=== PATIENT | female | born 1990 | race Caucasian/White ===

== ENCOUNTER 2016-12-11 02:05 | Inpatient (IN) | payer MEDICAID ==
[2016-12-11 02:54] LABS: APPEARANCE,URINE CLOUDY; BILIRUBIN,URINE SMALL (NEGATIVE); GLUCOSE, URINE NEGATIVE (NEGATIVE); KETONES,URINE TRACE mg/dL (NEGATIVE); LEUKOCYTE ESTERASE,URINE SMALL (NEGATIVE); NITRITE,URINE NEGATIVE (NEGATIVE); PROTEIN,URINE 100 mg/dL (NEGATIVE); URINE SPECIFIC GRAVITY 1.047
[2016-12-11 03:02] LABS: AMNISURE (ROM) POSITIVE (NEGATIVE)
[2016-12-11 03:29] LABS: URINE BARBITURATES SCREEN NEGATIVE; URINE METHADONE SCREEN NEGATIVE; URINE OPIATES LOW NEGATIVE; URINE PHENCYCLIDINE SCREEN NEGATIVE
[2016-12-11] MEDS: RINGERS SOLUTION,LACTATED 1,000 ML IV PRN ×5 (03:42→18:11)
[2016-12-11 03:46] LABS: HEMATOCRIT 32.9 % (36.0-47.0); HEMOGLOBIN 10.5 g/dL (12.0-15.5); HGB HCT DIFFERENCE -1.4; MEAN CORPUSCULAR HEMOGLOBIN 26.4 pg (27.0-33.4); MEAN CORPUSCULAR VOLUME 83 fl (80-97); RED BLOOD COUNT 3.99 10^6/uL (3.72-5.28); RED CELL DISTRIBUTION WIDTH 15.1 % (11.5-14.0); WHITE BLOOD COUNT 21.1 10^3/uL (4.0-10.5)
[2016-12-11 04:17] LABS: BAND NEUTROPHILS % (MANUAL) 5 % (3-5); BASOPHILS % (MANUAL) 0 % (0-2); EOSINOPHILS % (MANUAL) 2 % (0-6); LYMPHOCYTES % (MANUAL) 7 % (13-45); TOTAL CELLS COUNTED 100
[2016-12-11 04:18] LABS: TOXIC GRANULATION SLIGHT
[2016-12-11 04:19] LABS: ANISOCYTOSIS SLIGHT; HYPOCHROMASIA SLIGHT; POLYCHROMASIA SLIGHT
[2016-12-11] MEDS ORDERED: FENTANYL/BUPIVACAINE/NS/PF 200 MCG/100 ML RTUINJ EPI ONE ×2 (04:39→13:11)
[2016-12-11] MEDS ORDERED: BUPIVACAINE HCL 0.25 % INJ/PF (2.5 MG/1 ML) 30 ML VIAL ONE (04:39)
[2016-12-11] MEDS ORDERED: EPHEDRINE SULFATE INJ 50 MG/1 ML AMPULE ONE (04:39)
[2016-12-11] MEDS ORDERED: FENTANYL/BUPIVACAINE/NS/PF 100 ML EPI PRN (05:48)
[2016-12-11] MEDS ORDERED: EPHEDRINE SULFATE INJ 50 MG/1 ML AMPULE IV PRN (05:48)
[2016-12-11] MEDS ORDERED: BUPIVACAINE HCL 0.25 % INJ/PF (2.5 MG/1 ML) 30 ML VIAL INFIL ONE (05:48)
[2016-12-11] MEDS ORDERED: BENZOIN/ALOE VERA/STORAX/TOLU TINCTURE 60 ML TP PRN (05:48)
[2016-12-11] MEDS ORDERED: RINGERS SOLUTION,LACTATED 1,000 ML IV PRN (05:49)
[2016-12-11] MEDS ORDERED: RINGERS SOLUTION,LACTATED 300 ML IV ONE (05:49)
[2016-12-11] MEDS ORDERED: OXYTOCIN/NORMAL SALINE 20 UNIT/1,000 ML RTUINJ IV PRN (05:49)
[2016-12-11] MEDS ORDERED: OXYTOCIN/NORMAL SALINE 20 UNIT/1,000 ML RTUINJ ONE ×2 (05:50→15:47)
--- NOTE | 2016-12-11 08:01 | L&D Flow Sheet ---
LD Flowsheet Datetime Report Generated by CPN: 12/11/2016 08:00 Datetime: 12/11/2016 07:49 NBP Sys/Renita/Mean (mmHg): 106 (QS system process) : 66 (QS system process) : 82 (QS system process) Pulse: 80 (QS system process) Respirations: 14 (Julieta Live RN) Temperature (F): 98.4 (Julieta Live RN) Temperature (C): 36.9 (QS system process) Temperature Route: Oral (Julieta Live RN) Pain Pain Scale: 0 (Julieta Marhefka, RN) Pain Presence: None/Denies (Julieta Marhefka, RN) Pain Type: N/A (Julieta Marhefka, RN) Pain Goal: 0 (Julieta Marhefka, RN) Pain Relief Measures: Comfort Measures (Julieta Marhefka, RN) Maternal Assessment Level of Consciousness: Fully Conscious (Julieta Marhefka, RN) DTR's/Clonus: DTRs 1+; No Clonus (Julieta Marhefka, RN) Headache: Denies (Julieta Marhefka, RN) Breath Sounds, Left: Clear and Equal (Julieta Marhefka, RN) Breath Sounds, Right: Clear and Equal (Julieta Marhefka, RN) Nausea/Vomiting: Denies (Julieta Marhefka, RN) RUQ Epigastric Pain: Denies (Julieta Marhefka, RN) LaborFlag: Antepartum (QS system process) Datetime: 12/11/2016 07:33 NBP Sys/Renita/Mean (mmHg): 88 (QS system process) : 52 (QS system process) : 64 (QS system process) Pulse: 68 (QS system process) LaborFlag: Antepartum (QS system process) Datetime: 12/11/2016 07:19 NBP Sys/Renita/Mean (mmHg): 83 (QS system process) : 48 (QS system process) : 60 (QS system process) Pulse: 68 (QS system process) LaborFlag: Antepartum (QS system process) Datetime: 12/11/2016 07:07 Communication Communication: Report Given to @ R. Deonnahefka RN (Crystal Aditi, RN) Datetime: 12/11/2016 07:03 NBP Sys/Renita/Mean (mmHg): 81 (QS system process) : 48 (QS system process) : 60 (QS system process) Pulse: 72 (QS system process) LaborFlag: Antepartum (QS system process) Datetime: 12/11/2016 07:00 Uterine Activity Monitor Mode: External; Palpation (Crystal Harper, RN) Frequency (min): 2.5-7 (Crystal Harper, RN) Quality: Moderate to Strong (Crystal Harper, RN) Duration (sec): 60-90 (Crystal Harper, RN) Duration Criteria: Less than Two 120 Second Contractions (Crystal Aditi, RN) Resting Tone (Palpate): Relaxed (Crystal Harper, RN) Assessment A Monitor Mode: External US (Crystal Harper, RN) FHR Baseline Rate : 130 (Crystal Harper, RN) Variability: Moderate 6-25 bpm (Crystal Aditi, RN) Accelerations: None (Crystal Harper, RN) Decelerations: None (Crystal Harper, RN) Medications Pitocin (milliunit): Pitocin Remains (milliunits) @ 4 (Crystal Harper, RN) Datetime: 12/11/2016 06:48 NBP Sys/Renita/Mean (mmHg): 85 (QS system process) : 49 (QS system process) : 61 (QS system process) Pulse: 67 (QS system process) LaborFlag: Antepartum (QS system process) Datetime: 12/11/2016 06:45 Uterine Activity Monitor Mode: External; Palpation (Crystal Aditi, RN) Frequency (min): 4-7 (Crystal Harper, RN) Quality: Moderate to Strong (Crystal Harper, RN) Duration (sec): 80-100 (Crystal Aditi, RN) Duration Criteria: Less than Two 120 Second Contractions (Crystal Harper, RN) Resting Tone (Palpate): Relaxed (Crystal Harper, RN) Assessment A Monitor Mode: External US (Crystal Aditi, RN) FHR Baseline Rate : 135 (Crystal Aditi, RN) Variability: Moderate 6-25 bpm (Crystal Harper, RN) Accelerations: 15X15 (Crystal Harper, RN) Decelerations: None (Crystal Aditi, RN) Pain Presence: None/Denies (Crystal Harper, RN) Pain Type: N/A (Crystal Aditi, RN) Pain Relief Measures: Epidural Given (Crystal Aditi, RN) Medications Pitocin (milliunit): Pitocin Increased to (milliunits) @ 4 (Crystal Harper, RN) Patient Position/Activity: Left Lateral (Crystal Aditi, RN) LaborFlag: Antepartum (QS system process) Datetime: 12/11/2016 06:35 NBP Sys/Renita/Mean (mmHg): 83 (QS system process) : 52 (QS system process) : 62 (QS system process) Pulse: 74 (QS system process) LaborFlag: Antepartum (QS system process) Datetime: 12/11/2016 06:34 NBP Sys/Renita/Mean (mmHg): 83 (QS system process) : 46 (QS system process) : 60 (QS system process) Pulse: 68 (QS system process) LaborFlag: Antepartum (QS system process) Datetime: 12/11/2016 06:33 NBP Sys/Renita/Mean (mmHg): 89 (QS system process) : 53 (QS system process) : 67 (QS system process) Pulse: 65 (QS system process) LaborFlag: Antepartum (QS system process) Datetime: 12/11/2016 06:30 Uterine Activity Monitor Mode: External; Palpation (Crystal Harper, RN) Frequency (min): 9 (Crystal Harper, RN) Quality: Moderate to Strong (Crystal Harper, RN) Duration (sec): 120 (Crystal Harper, RN) Duration Criteria: Less than Two 120 Second Contractions (Crystal Harper, RN) Resting Tone (Palpate): Relaxed (Crystal Harper, RN) Assessment A Monitor Mode: External US (Crystal Harper, RN) FHR Baseline Rate : 115 (Crystal Harper, RN) Variability: Moderate 6-25 bpm (Crystal Aditi, RN) Accelerations: 15X15 (Crystal Aditi, RN) Decelerations: None (Crystal Aditi, RN) Medications Pitocin (milliunit): Pitocin Remains (milliunits) @ 2 (Crystal Aditi, RN) Patient Position/Activity: Left Lateral; Semi-Fowlers (Crystal Harper, RN) Datetime: 12/11/2016 06:18 NBP Sys/Renita/Mean (mmHg): 85 (QS system process) : 47 (QS system process) : 63 (QS system process) Pulse: 69 (QS system process) LaborFlag: Antepartum (QS system process) Datetime: 12/11/2016 06:15 Uterine Activity Monitor Mode: External (Crystal Aditi, RN) Frequency (min): 9.5 (Crystal Aditi, RN) Quality: Moderate to Strong (Crystal Aditi, RN) Duration (sec): 80 (Crystal Harper, RN) Duration Criteria: Less than Two 120 Second Contractions (Crystal Harper, RN) Resting Tone (Palpate): Relaxed (Crystal Aditi, RN) Assessment A Monitor Mode: External US (Crystal Aditi, RN) FHR Baseline Rate : 102 (Crystal Harper, RN) Variability: Moderate 6-25 bpm (Crystal Aditi, RN) Accelerations: 15X15 (Crystal Aditi, RN) Decelerations: None (Crystal Aditi, RN) Medications Pitocin (milliunit): Pitocin Started (milliunits) @ 2 (Crystal Aditi, RN) Patient Position/Activity: Left Lateral (Crystal Harper, RN) Datetime: 12/11/2016 06:11 Vaginal Exam Dilatation (cm): 4.0 (Crystal Aditi, RN) Effacement (%): 75 (Crystal Harper, RN) Station: -1 (Crystal Aditi, RN) Exam by: Purnima Pennington RN (Crystal Aditi, RN) Vaginal Bleeding: None (Crystal Harper, RN) Cervix, Consistency: Soft (Crystal Aditi, RN) Cervix, Position: Posterior (Crystal Aditi, RN) Datetime: 12/11/2016 06:06 NBP Sys/Renita/Mean (mmHg): 88 (QS system process) : 52 (QS system process) : 66 (QS system process) Pulse: 71 (QS system process) LaborFlag: Antepartum (QS system process) Datetime: 12/11/2016 06:05 NBP Sys/Renita/Mean (mmHg): 85 (QS system process) : 47 (QS system process) : 60 (QS system process) Pulse: 73 (QS system process) LaborFlag: Antepartum (QS system process) Datetime: 12/11/2016 06:04 NBP Sys/Renita/Mean (mmHg): 88 (QS system process) : 50 (QS system process) : 61 (QS system process) Pulse: 70 (QS system process) LaborFlag: Antepartum (QS system process) Datetime: 12/11/2016 06:03 Vital Signs Stage of : Antepartum (Crystal Aditi, RN) NBP Sys/Renita/Mean (mmHg): 89 (Annotations: Reported BP to Dr. Higgins, will continue to monitor.) (Crystal Harper, RN) : 50 (QS system process) : 63 (QS system process) Pulse: 73 (QS system process) LaborFlag: Antepartum (QS system process) Datetime: 12/11/2016 06:00 Vital Signs Stage of : Antepartum (Crystal Harper, RN) Uterine Activity Monitor Mode: External (Crystal Aditi, RN) Frequency (min): 9.5 (Crystal Harper, RN) Quality: Moderate to Strong (Tami Pennington RN) Duration (sec): 80 (Tami Pennington RN) Duration Criteria: Less than Two 120 Second Contractions (Tami Pennington RN) Resting Tone (Palpate): Relaxed (Tami Pennington, RN) Assessment A Monitor Mode: External US (Tami Pennington RN) FHR Baseline Rate : 120 (Tami Pennington RN) Variability: Moderate 6-25 bpm (Tami Pennington RN) Accelerations: None (Tami Pennington RN) Decelerations: None (Tami Pennington RN) Patient Position/Activity: Left Lateral (Tami Pennington RN) Provider Reviewed Strip: Yes (Tami Pennington RN) Strip Reviewed by: Purnima Pennington RN (Tami Pennington RN) Communication Communication: Provider Orders Received (Tami Pennington RN) Provider Notified (Name): Ronaldo (Tami Pennington RN) Notification Reason: Status Update; Status; Labor Status; Membrane Status; Uterine Activity; Maternal Vital Sign Change (Crystal Aditi, RN) Communication Comments: Orders to start Pitocin IV (Crystal Aditi, RN) Datetime: 12/11/2016 05:48 NBP Sys/Renita/Mean (mmHg): 100 (QS system process) : 55 (QS system process) : 72 (QS system process) Pulse: 82 (QS system process) LaborFlag: Antepartum (QS system process) Datetime: 12/11/2016 05:45 Uterine Activity Monitor Mode: External (Crystal Aditi, RN) Frequency (min): 9.5 (Crystal Aditi, RN) Quality: Moderate to Strong (Crystal Aditi, RN) Duration Criteria: Less than Two 120 Second Contractions (Crystal Harper, RN) Resting Tone (Palpate): Relaxed (Crystal Harper, RN) Assessment A Monitor Mode: External US (Crystal Harper, RN) FHR Baseline Rate : 110 (Crystal Aditi, RN) Variability: Moderate 6-25 bpm (Crystal Harper, RN) Accelerations: 15X15 (Crystal Harper, RN) Decelerations: None (Crystal Harper, RN) Patient Position/Activity: Right Lateral (Crystal Aditi, RN) Datetime: 12/11/2016 05:33 NBP Sys/Renita/Mean (mmHg): 98 (QS system process) : 55 (QS system process) : 69 (QS system process) Pulse: 82 (QS system process) LaborFlag: Antepartum (QS system process) Datetime: 12/11/2016 05:30 Uterine Activity Monitor Mode: External; Palpation (Crystal Aditi, RN) Frequency (min): 4-6.5 (Crystal Harper, RN) Quality: Moderate to Strong (Crystal Aditi, RN) Duration Criteria: Less than Two 120 Second Contractions (Crystal Aditi, RN) Resting Tone (Palpate): Relaxed (Crystal Harper, RN) Assessment A Monitor Mode: External US (Crystal Aditi, RN) FHR Baseline Rate : 115 (Crystal Harper, RN) Variability: Moderate 6-25 bpm (Crystal Harper, RN) Accelerations: 15X15 (Crystal Aditi, RN) Decelerations: None (Crystal Harper, RN) Patient Position/Activity: Right Lateral (Crystal Aditi, RN) Datetime: 12/11/2016 05:16 Vaginal Exam Dilatation (cm): 3.5 (Crystal Aditi, RN) Effacement (%): 75 (Crystal Harper, RN) Station: -1 (Crystal Aditi, RN) Exam by: CVaishali Harper, RN (Crystal Aditi, RN) Datetime: 12/11/2016 05:15 Uterine Activity Monitor Mode: External (Crystal Aditi, RN) Frequency (min): UTD (Crystal Harper, RN) Quality: Moderate (Crystal Harper, RN) Duration Criteria: Less than Two 120 Second Contractions (Crystal Aditi, RN) Resting Tone (Palpate): Relaxed (Crystal Harper, RN) Assessment A Monitor Mode: External US (Crystal Aditi, RN) FHR Baseline Rate : 125 (Crystal Aditi, RN) Variability: Moderate 6-25 bpm (Crystal Harper, RN) Accelerations: None (Crystal Harper, RN) Decelerations: None (Crystal Aditi, RN) I/O Interventions: Maldonado Cath Inserted (Crystal Harper, RN) Datetime: 12/11/2016 05:14 NBP Sys/Renita/Mean (mmHg): 107 (QS system process) : 65 (QS system process) : 80 (QS system process) Pulse: 95 (QS system process) LaborFlag: Antepartum (QS system process) Datetime: 12/11/2016 05:13 NBP Sys/Renita/Mean (mmHg): 115 (QS system process) : 67 (QS system process) : 84 (QS system process) Pulse: 94 (QS system process) LaborFlag: Antepartum (QS system process) Datetime: 12/11/2016 05:12 NBP Sys/Renita/Mean (mmHg): 106 (QS system process) : 56 (QS system process) : 75 (QS system process) Pulse: 88 (QS system process) LaborFlag: Antepartum (QS system process) Datetime: 12/11/2016 05:11 NBP Sys/Renita/Mean (mmHg): 112 (QS system process) : 59 (QS system process) : 78 (QS system process) Pulse: 82 (QS system process) LaborFlag: Antepartum (QS system process) Datetime: 12/11/2016 05:10 NBP Sys/Renita/Mean (mmHg): 104 (QS system process) : 60 (QS system process) : 76 (QS system process) Pulse: 79 (QS system process) LaborFlag: Antepartum (QS system process) Datetime: 12/11/2016 05:09 NBP Sys/Renita/Mean (mmHg): 110 (QS system process) : 62 (QS system process) : 79 (QS system process) Pulse: 86 (QS system process) Epidural Procedure Other: Pump Started (Crystal Harper, RN) LaborFlag: Antepartum (QS system process) Datetime: 12/11/2016 05:07 NBP Sys/Renita/Mean (mmHg): 109 (QS system process) : 56 (QS system process) : 76 (QS system process) Pulse: 90 (QS system process) LaborFlag: Antepartum (QS system process) Datetime: 12/11/2016 05:06 NBP Sys/Renita/Mean (mmHg): 115 (QS system process) : 56 (QS system process) : 81 (QS system process) Pulse: 103 (QS system process) LaborFlag: Antepartum (QS system process) Datetime: 12/11/2016 05:04 NBP Sys/Renita/Mean (mmHg): 123 (QS system process) : 90 (QS system process) : 104 (QS system process) Pulse: 90 (QS system process) LaborFlag: Antepartum (QS system process) Datetime: 12/11/2016 05:03 Pulse: 87 (QS system process) SpO2 (%): 88 (QS system process) LaborFlag: Antepartum (QS system process) Datetime: 12/11/2016 05:01 Epidural Procedure: Test Dose (Crystal Aditi, RN) Epidural Procedure: Cath Placed (Crystal Harper, RN) Datetime: 12/11/2016 05:00 Uterine Activity Monitor Mode: External (Crystal Aditi, RN) Frequency (min): UTD (Crystal Harper, RN) Quality: Moderate to Strong (Crystal Harper, RN) Duration Criteria: Less than Two 120 Second Contractions (Crystal Aditi, RN) Resting Tone (Palpate): Relaxed (Crystal Aditi, RN) Assessment A Monitor Mode: External US (Crystal Aditi, RN) FHR Baseline Rate : 130 (Crystal Aditi, RN) Variability: Moderate 6-25 bpm (Crystal Aditi, RN) Accelerations: None (Crystal Harper, RN) Decelerations: None (Crystal Harper, RN) Datetime: 12/11/2016 04:58 Pulse: 95 (QS system process) SpO2 (%): 100 (QS system process) LaborFlag: Antepartum (QS system process) Datetime: 12/11/2016 04:53 Pulse: 90 (QS system process) SpO2 (%): 100 (QS system process) Procedure TIME OUT Procedure Verify: Accurate Procedure Consent Form; Agreement on Procedure to be Done; Correct Patient Position; Addressed Need to Administer Antibiotics or Fluids for Irrigation; Safety Precautions Based on Patient History or Medication Use (Crystal Aditi, RN) Anesthesia Anesthesia Plans: Epidural (Crystal Harper, RN) Epidural Positioning: Sitting (Crystal Aditi, RN) LaborFlag: Antepartum (QS system process) Datetime: 12/11/2016 04:48 Pulse: 102 (QS system process) SpO2 (%): 100 (QS system process) LaborFlag: Antepartum (QS system process) Datetime: 12/11/2016 04:47 Procedure TIME OUT Procedure Verify: Correct Patient Position (Crystal Harper, RN) Anesthesia Anesthesia Plans: Epidural (Crystal Harper, RN) Epidural Positioning: Sitting (Crystal Harper, RN) Datetime: 12/11/2016 04:31 NBP Sys/Renita/Mean (mmHg): 111 (QS system process) : 71 (QS system process) : 85 (QS system process) Pulse: 100 (QS system process) LaborFlag: Antepartum (QS system process) Datetime: 12/11/2016 04:30 Uterine Activity Monitor Mode: External (Crystal Aditi, RN) Frequency (min): 4-5.5 (Crystal Harper, RN) Quality: Moderate (Crystal Harper, RN) Duration (sec): 60-80 (Crystal Aditi, RN) Duration Criteria: Less than Two 120 Second Contractions (Crystal Aditi, RN) Resting Tone (Palpate): Relaxed (Crystal Aditi, RN) Assessment A Monitor Mode: External US (Crystal Harper, RN) FHR Baseline Rate : 120 (Crystal Aditi, RN) Variability: Moderate 6-25 bpm (Crystal Harper, RN) Decelerations: None (Crystal Aditi, RN) Patient Position/Activity: Right Lateral (Crystal Aditi, RN) Datetime: 12/11/2016 04:28 I/O Interventions: Up to BR (Crystal Aditi, RN) Datetime: 12/11/2016 04:05 Patient Care IV/Blood Work: IV Started (Crystal Aditi, RN) Patient Care Comments: 18 G L FA (Crystal Aditi, RN) Datetime: 12/11/2016 04:00 Uterine Activity Monitor Mode: External (Crystal Harper, RN) Frequency (min): 4-6 (Crystal Harper, RN) Quality: Moderate (Crystal Harper, RN) Duration (sec): 60-70 (Crystal Aditi, RN) Duration Criteria: Less than Two 120 Second Contractions (Crystal Aditi, RN) Resting Tone (Palpate): Relaxed (Crystal Harper, RN) Assessment A Monitor Mode: External US (Crystal Harper, RN) FHR Baseline Rate : 120 (Crystal Aditi, RN) Variability: Moderate 6-25 bpm (Crystal Harper, RN) Accelerations: 15X15 (Crystal Aditi, RN) Decelerations: None (Crystal Harper, RN) Patient Position/Activity: Right Lateral (Crystal Aditi, RN) Datetime: 12/11/2016 03:38 Temperature (F): 98.1 (Crystal Aditi, RN) Temperature (C): 36.7 (QS system process) LaborFlag: Antepartum (QS system process) Datetime: 12/11/2016 03:31 Patient Care IV/Blood Work: Labs Drawn (Crystal Aditi, RN) Datetime: 12/11/2016 03:30 Uterine Activity Monitor Mode: External; Palpation (Crystal Aditi, RN) Frequency (min): 3.5-5.5 (Crystal Harper, RN) Quality: Moderate (Crystal Aditi, RN) Duration (sec): 60-80 (Crystal Harper, RN) Duration Criteria: Less than Two 120 Second Contractions (Crystal Harper, RN) Resting Tone (Palpate): Relaxed (Crystal Harper, RN) Assessment A Monitor Mode: External US (Crystal Harper, RN) FHR Baseline Rate : 120 (Crystal Aditi, RN) Variability: Moderate 6-25 bpm (Crystal Harper, RN) Accelerations: None (Crystal Harper, RN) Decelerations: None (Crystal Aditi, RN) Patient Position/Activity: Right Lateral; Semi-Fowlers (Crystal Aditi, RN) Datetime: 12/11/2016 03:17 Patient Care IV/Blood Work: IV Started; IV Bolus Started (Crystal Aditi, RN) Patient Care Comments: 18 G R AC (Crystal Harper, RN) Datetime: 12/11/2016 03:15 Frequency (min): UTD (Crystal Harper, RN) Quality: Moderate (Crystal Harper, RN) Resting Tone (Palpate): Relaxed (Crystal Harper, RN) Assessment A Monitor Mode: External US (Crystal Aditi, RN) FHR Baseline Rate : 120 (Crystal Aditi, RN) Variability: Moderate 6-25 bpm (Crystal Harper, RN) Accelerations: None (Crystal Aditi, RN) Decelerations: None (Crystal Aditi, RN) Patient Position/Activity: Right Lateral (Crystal Aditi, RN) Datetime: 12/11/2016 02:42 Vaginal Exam Dilatation (cm): 3.0 (Crystal Aditi, RN) Effacement (%): 75 (Crystal Harper, RN) Station: -1 (Crystal Harper, RN) Exam by: Purnima Pennington RN (Crystal Harper, RN) Vaginal Bleeding: None (Crystal Aditi, RN) Cervix, Consistency: Soft (Crystal Harper, RN) Cervix, Position: Posterior (Crystal Aditi, RN) Datetime: 12/11/2016 02:40 Uterine Activity Monitor Mode: External; Palpation (Crystal Harper, RN) Frequency (min): 4.5-7 (Crystal Harper, RN) Quality: Moderate (Crystal Aditi, RN) Duration (sec): 50-90 (Crystal Aditi, RN) Duration Criteria: Less than Two 120 Second Contractions (Crystal Aditi, RN) Resting Tone (Palpate): Relaxed (Crystal Aditi, RN) Assessment A Monitor Mode: External US (Crystal Harper, RN) FHR Baseline Rate : 120 (Crystal Aditi, RN) Variability: Moderate 6-25 bpm (Crystal Aditi, RN) Accelerations: 15X15 (Crystal Aditi, RN) Decelerations: None (Crystal Aditi, RN) Patient Position/Activity: Right Lateral; Semi-Fowlers (Crystal Aditi, RN) I/O Interventions: Clear Liquids Given (Crystal Harper, RN) Datetime: 12/11/2016 02:30 Vital Signs Stage of : Antepartum (Crystal Harper, RN) Datetime: 12/11/2016 02:26 NBP Sys/Renita/Mean (mmHg): 115 (QS system process) : 72 (QS system process) : 87 (QS system process) Pulse: 92 (QS system process) Datetime: 12/11/2016 02:18 Frequency (min): About every 3 minutes (Crystal Harper, RN) Pain Pain Scale: 3 (Crystal Aditi, RN) Pain Presence: Intermittent (Crystal Harper, RN) Pain Type: Contraction (Crystal Aditi, RN) Pain Location: Abdomen (Crystal Harper, RN) Pain Goal: 2 (Crystal Harper, RN) Pain Relief Measures: Comfort Measures (Crystal Harper, RN) Pain Coping: Talking Through Contractions (Crystal Harper, RN) Vaginal Bleeding: None (Crystal Aditi, RN) Maternal Assessment Level of Consciousness: Fully Conscious (Tami Pennington RN) DTR's/Clonus: DTRs 2+; No Clonus (Tami Pennington RN) Headache: Denies (Tami Pennington RN) Breath Sounds, Left: Clear and Equal (Tami Pennington RN) Breath Sounds, Right: Clear and Equal (Tami Pennington RN) Nausea/Vomiting: Denies (Tami Pennington RN) RUQ Epigastric Pain: Denies (Tami Pennington, RN) Teaching Instructional Method: Verbal; Patient Instructed; Family/Support Person Instructed; Verbalized Understanding (Tami Pennington RN) Plan of Care: Plan of Care Discussed (Tami Pennington RN) Unit Routine: Franklin to Room; Call Morgan; Bed (Tami Pennington RN)
--- NOTE | 2016-12-11 10:00 | L&D Flow Sheet ---
LD Flowsheet Datetime Report Generated by CPN: 12/11/2016 10:00 Datetime: 12/11/2016 09:49 NBP Sys/Renita/Mean (mmHg): 108 (QS system process) : 66 (QS system process) : 81 (QS system process) Pulse: 86 (QS system process) LaborFlag: Antepartum (QS system process) Datetime: 12/11/2016 09:45 Monitor Mode: External (Julieta Maria T, RN) Frequency (min): 3-4 (Julieta Marhefka, RN) Quality: Mild/Moderate (Julieta Live, RN) Duration (sec): 70-100 (Julieta Live RN) Resting Tone (Palpate): Relaxed (Julieta Live RN) Pitocin (milliunit): Pitocin Remains (milliunits) @ (Annotations: 14) (Julieta Live, LYLE) Datetime: 12/11/2016 09:33 NBP Sys/Renita/Mean (mmHg): 107 (QS system process) : 63 (QS system process) : 77 (QS system process) Pulse: 84 (QS system process) LaborFlag: Antepartum (QS system process) Datetime: 12/11/2016 09:30 Monitor Mode: External (Julieta Live RN) Frequency (min): 1-5 (Julieta Live RN) Quality: Mild/Moderate (Julieta Live, RN) Duration (sec): 70-100 (Julieta Live RN) Resting Tone (Palpate): Relaxed (Julieta Live RN) Pitocin (milliunit): Pitocin Remains (milliunits) @ (Annotations: 14) (Julieta Live RN) Datetime: 12/11/2016 09:18 NBP Sys/Renita/Mean (mmHg): 98 (QS system process) : 62 (QS system process) : 75 (QS system process) Pulse: 86 (QS system process) Respirations: 16 (Julieta Live RN) LaborFlag: Antepartum (QS system process) Datetime: 12/11/2016 09:15 Monitor Mode: External (Julieta Live RN) Frequency (min): 2-3 (Julieta Live RN) Quality: Mild/Moderate (Julieta Live RN) Duration (sec): 70-90 (Julieta Live RN) Resting Tone (Palpate): Relaxed (Julieta Live RN) Monitor Mode: External US (Julieta Live RN) FHR Baseline Rate : 125 (Julieta Live RN) FHR Baseline Changes: No Baseline Change (Julieta Live RN) Variability: Moderate 6-25 bpm (Julieta Live RN) Accelerations: 15X15 (Julieta Live RN) Decelerations: None (Julieta Live RN) Pitocin (milliunit): Pitocin Increased to (milliunits) @ (Annotations: 14) (Julieta Live RN) Datetime: 12/11/2016 09:08 Patient Position/Activity: High Fowlers (Julieta Live, LYLE) Datetime: 12/11/2016 09:06 Dilatation (cm): 4.0 (Julieta Live RN) Effacement (%): 70 (Julieta Live RN) Station: -2 (Julieta Live RN) Exam by: Kerry Live RN (Julieta Live RN) Vaginal Bleeding: None (Julieta Live RN) Cervix, Consistency: Moderate (Julieta Marhefka, RN) Cervix, Position: Midposition (Julietakayy Foxka, RN) Datetime: 12/11/2016 09:03 NBP Sys/Renita/Mean (mmHg): 96 (QS system process) : 62 (QS system process) : 72 (QS system process) Pulse: 76 (QS system process) LaborFlag: Antepartum (QS system process) Datetime: 12/11/2016 09:00 Monitor Mode: External (Julieta Live RN) Frequency (min): 2-4 (Julieta Live, RN) Quality: Mild/Moderate (Julieta Foxka, RN) Duration (sec): 70-90 (Julieta Live, RN) Resting Tone (Palpate): Relaxed (Julieta Live RN) Monitor Mode: External US (Julieta Live, RN) FHR Baseline Rate : 125 (Julieta Foxka, RN) FHR Baseline Changes: No Baseline Change (Julieta Live RN) Variability: Moderate 6-25 bpm (Julieta Marhefka, RN) Accelerations: 15X15 (Julieta Live, RN) Decelerations: None (Julieta Live, RN) Pitocin (milliunit): Pitocin Increased to (milliunits) @ (Annotations: 12) (Julieta Live, RN) Datetime: 12/11/2016 08:48 NBP Sys/Renita/Mean (mmHg): 100 (QS system process) : 63 (QS system process) : 75 (QS system process) Pulse: 81 (QS system process) LaborFlag: Antepartum (QS system process) Datetime: 12/11/2016 08:45 Monitor Mode: External (Julieta Live RN) Frequency (min): 1-3 (Julieta Live RN) Quality: Mild/Moderate (Julieta Live RN) Duration (sec): 60-80 (Julieta Live RN) Resting Tone (Palpate): Relaxed (Julieta Live RN) Monitor Mode: External US (Julieta Marhefka, RN) FHR Baseline Rate : 125 (Julieta Marhefka, RN) FHR Baseline Changes: No Baseline Change (Julieta Marhefka, RN) Variability: Moderate 6-25 bpm (Julieta Marhefka, RN) Accelerations: 15X15 (Julieta Marhefka, RN) Decelerations: None (Julieta Marhefka, RN) Pitocin (milliunit): Pitocin Remains (milliunits) @ (Annotations: 10) (Julieta Marhefka, RN) Datetime: 12/11/2016 08:33 NBP Sys/Renita/Mean (mmHg): 101 (QS system process) : 65 (QS system process) : 78 (QS system process) Pulse: 78 (QS system process) LaborFlag: Antepartum (QS system process) Datetime: 12/11/2016 08:32 Monitor Interventions for UA: [place] Adjusted (Julieta Marhefka, RN) Datetime: 12/11/2016 08:30 Monitor Mode: External (Julieta Marhefka, RN) Frequency (min): 2-11 (Julieta Marhefka, RN) Quality: Mild/Moderate (Julieta Marhefka, RN) Duration (sec): 50-70 (Julieta Marhefka, RN) Resting Tone (Palpate): Relaxed (Julieta Marhefka, RN) Monitor Mode: External US (Julieta Marhefka, RN) FHR Baseline Rate : 125 (Julieta Marhefka, RN) FHR Baseline Changes: No Baseline Change (Julieta Marhefka, RN) Variability: Marked >25 bpm (Julieta Marhefka, RN) Accelerations: None (Julieta Marhefka, RN) Decelerations: Early (Julieta Marhefka, RN) Pitocin (milliunit): Pitocin Increased to (milliunits) @ (Annotations: 10) (Julieta Marhefka, RN) Datetime: 12/11/2016 08:18 NBP Sys/Renita/Mean (mmHg): 102 (QS system process) : 60 (QS system process) : 76 (QS system process) Pulse: 78 (QS system process) LaborFlag: Antepartum (QS system process) Datetime: 12/11/2016 08:15 Monitor Mode: External (Julieta Marhefka, RN) Frequency (min): 4-5 (Julieta Marhefka, RN) Quality: Mild/Moderate (Julieta Marhefka, RN) Duration (sec): 70-90 (Julieta Marhefka, RN) Resting Tone (Palpate): Relaxed (Julieta Marhefka, RN) Monitor Mode: External US (Julieta Marhefka, RN) FHR Baseline Rate : 125 (Julieta Marhefka, RN) FHR Baseline Changes: No Baseline Change (Julieta Marhefka, RN) Variability: Moderate 6-25 bpm (Julieta Marhefka, RN) Accelerations: 15X15 (Julieta Marhefka, RN) Decelerations: None (Julieta Marhefka, RN) Pitocin (milliunit): Pitocin Remains (milliunits) @ (Annotations: 8) (Julieta Marhefka, RN) Datetime: 12/11/2016 08:03 NBP Sys/Renita/Mean (mmHg): 100 (QS system process) : 59 (QS system process) : 74 (QS system process) Pulse: 72 (QS system process) Respirations: 14 (Julieta Live RN) LaborFlag: Antepartum (QS system process) Datetime: 12/11/2016 08:00 Monitor Mode: External (Julieta Live RN) Frequency (min): 3-5 (Julieta Live RN) Quality: Mild/Moderate (Julieta Live RN) Duration (sec): 60-70 (Julieta Live RN) Resting Tone (Palpate): Relaxed (Julieta Live RN) Monitor Mode: External US (Julieta Live RN) FHR Baseline Rate : 135 (Julieta Live RN) FHR Baseline Changes: No Baseline Change (Julieta Live RN) Variability: Moderate 6-25 bpm (Julieta Live RN) Accelerations: 15X15 (Julieta Live RN) Decelerations: None (Julieta Live RN) Pitocin (milliunit): Pitocin Increased to (milliunits) @ (Annotations: 8) (Julieta Live RN)
--- NOTE | 2016-12-11 12:00 | L&D Flow Sheet ---
LD Flowsheet Datetime Report Generated by CPN: 12/11/2016 12:00 Datetime: 12/11/2016 11:49 NBP Sys/Renita/Mean (mmHg): 113 (QS system process) : 60 (QS system process) : 81 (QS system process) Pulse: 92 (QS system process) LaborFlag: Antepartum (QS system process) Datetime: 12/11/2016 11:33 NBP Sys/Renita/Mean (mmHg): 77 (QS system process) : 52 (QS system process) : 60 (QS system process) Pulse: 75 (QS system process) LaborFlag: Antepartum (QS system process) Datetime: 12/11/2016 11:18 NBP Sys/Renita/Mean (mmHg): 86 (QS system process) : 50 (QS system process) : 62 (QS system process) Pulse: 73 (QS system process) LaborFlag: Antepartum (QS system process) Datetime: 12/11/2016 11:04 NBP Sys/Renita/Mean (mmHg): 86 (QS system process) : 53 (QS system process) : 63 (QS system process) Pulse: 72 (QS system process) LaborFlag: Antepartum (QS system process) Datetime: 12/11/2016 11:00 Monitor Mode: External (Julieta Marhefka, RN) Frequency (min): 2-4 (Julieta Marhefka, RN) Quality: Mild/Moderate (Julieta Marhefka, RN) Duration (sec): 60-80 (Julieta Marhefka, RN) Resting Tone (Palpate): Relaxed (Julieta Marhefka, RN) Monitor Mode: External US (Julieta Marhefka, RN) FHR Baseline Rate : 130 (Julieta Marhefka, RN) FHR Baseline Changes: No Baseline Change (Julieta Marhefka, RN) Variability: Moderate 6-25 bpm (Julieta Marhefka, RN) Accelerations: None (Julieta Marhefka, RN) Decelerations: None (Julieta Marhefka, RN) Pitocin (milliunit): Pitocin Increased to (milliunits) @ (Annotations: 20) (Julieta Marhefka, RN) Datetime: 12/11/2016 10:51 NBP Sys/Renita/Mean (mmHg): 93 (QS system process) : 54 (QS system process) : 69 (QS system process) Pulse: 77 (QS system process) Respirations: 16 (Julieta Marhefka, RN) LaborFlag: Antepartum (QS system process) Datetime: 12/11/2016 10:45 Monitor Mode: External (Julieta Marhefka, RN) Frequency (min): 3-4 (Julieta Marhefka, RN) Quality: Mild/Moderate (Julieta Marhefka, RN) Duration (sec): 60-70 (Julieta Marhefka, RN) Resting Tone (Palpate): Relaxed (Julieta Marhefka, RN) Monitor Mode: External US (Julieta Marhefka, RN) FHR Baseline Rate : 125 (Julieta Marhefka, RN) FHR Baseline Changes: No Baseline Change (Julieta Marhefka, RN) Variability: Moderate 6-25 bpm (Julieta Marhefka, RN) Accelerations: 15X15 (Julieta Marhefka, RN) Decelerations: None (Julieta Marhefka, RN) Pitocin (milliunit): Pitocin Increased to (milliunits) @ (Annotations: 18) (Julieta Marhefka, RN) Datetime: 12/11/2016 10:30 Monitor Mode: External (Julieta Marhefka, RN) Frequency (min): 2-3 (Julieta Marhefka, RN) Quality: Mild/Moderate (Julieta Marhefka, RN) Duration (sec): 60-80 (Julieta Marhefka, RN) Resting Tone (Palpate): Relaxed (Julieta Live, RN) Monitor Mode: External US (Julieta Live, RN) FHR Baseline Rate : 125 (Julieta Maradafka, RN) FHR Baseline Changes: No Baseline Change (Julieta Maradafka, RN) Variability: Moderate 6-25 bpm (Julieta Maradafka, RN) Accelerations: 15X15 (Julieta Marhefka, RN) Decelerations: None (Julietakayy Singhfka, RN) Pitocin (milliunit): Pitocin Remains (milliunits) @ (Annotations: 16) (Julieta Samanthafka, RN) Datetime: 12/11/2016 10:19 NBP Sys/Renita/Mean (mmHg): 102 (QS system process) : 67 (QS system process) : 74 (QS system process) Pulse: 83 (QS system process) Temperature (F): 98.4 (Julieta Maradafka, RN) Temperature (C): 36.9 (QS system process) Temperature Route: Oral (Julieta Maradafka, RN) LaborFlag: Antepartum (QS system process) Datetime: 12/11/2016 10:15 Monitor Mode: External (Julieta Marhefka, RN) Frequency (min): 2-3 (Julieta Marhefka, RN) Quality: Mild/Moderate (Julieta Marhefka, RN) Duration (sec): 60-80 (Julieta Marhefka, RN) Resting Tone (Palpate): Relaxed (Julieta Marhefka, RN) Monitor Mode: External US (Julieta Marhefka, RN) FHR Baseline Rate : 125 (Julieta Marhefka, RN) FHR Baseline Changes: No Baseline Change (Julieta Marhefka, RN) Variability: Moderate 6-25 bpm (Julieta Marhefka, RN) Accelerations: 15X15 (Julieta Marhefka, RN) Decelerations: None (Julieta Marhefka, RN) Pitocin (milliunit): Pitocin Increased to (milliunits) @ (Annotations: 16) (Julieta Marhefka, RN) Datetime: 12/11/2016 10:04 NBP Sys/Renita/Mean (mmHg): 114 (QS system process) : 68 (QS system process) : 85 (QS system process) Pulse: 86 (QS system process) LaborFlag: Antepartum (QS system process) Datetime: 12/11/2016 10:00 Monitor Mode: External (Julieta Live RN) Frequency (min): 3-4 (Julieta Live RN) Quality: Mild/Moderate (Julieta Live RN) Duration (sec): 60-90 (Julieta Live RN) Resting Tone (Palpate): Relaxed (Julieta Live RN) Monitor Mode: External US (Julieta Live RN) FHR Baseline Rate : 130 (Julieta Live RN) FHR Baseline Changes: No Baseline Change (Julieta Live RN) Variability: Moderate 6-25 bpm (Julieta Live RN) Accelerations: 15X15 (Julieta Live RN) Decelerations: None (Julieta Live RN) Pitocin (milliunit): Pitocin Remains (milliunits) @ (Annotations: 14) (Julieta Live RN)
--- NOTE | 2016-12-11 14:00 | L&D Flow Sheet ---
LD Flowsheet Datetime Report Generated by CPN: 12/11/2016 14:00 Datetime: 12/11/2016 13:48 NBP Sys/Renita/Mean (mmHg): 104 (QS system process) : 56 (QS system process) : 72 (QS system process) Pulse: 86 (QS system process) LaborFlag: Antepartum (QS system process) Datetime: 12/11/2016 13:45 Pitocin (milliunit): Pitocin Remains (milliunits) @ (Annotations: 20) (Julieta Marhefsridevi, RN) Datetime: 12/11/2016 13:34 NBP Sys/Renita/Mean (mmHg): 103 (QS system process) : 51 (QS system process) : 73 (QS system process) Pulse: 81 (QS system process) LaborFlag: Antepartum (QS system process) Datetime: 12/11/2016 13:30 Pitocin (milliunit): Pitocin Remains (milliunits) @ (Annotations: 20) (Julieta Maradafka, RN) Datetime: 12/11/2016 13:20 NBP Sys/Renita/Mean (mmHg): 105 (QS system process) : 62 (QS system process) : 77 (QS system process) Pulse: 75 (QS system process) LaborFlag: Antepartum (QS system process) Datetime: 12/11/2016 13:15 Monitor Mode: External (Julieta Live RN) Frequency (min): 2-3 (Julieta Live RN) Quality: Mild/Moderate (Julieta Live RN) Duration (sec): 70-120 (Julieta Live RN) Resting Tone (Palpate): Relaxed (Julieta Live RN) Monitor Mode: External US (Julieta Live RN) FHR Baseline Rate : 135 (Julieta Live RN) FHR Baseline Changes: No Baseline Change (Julieta Live RN) Variability: Moderate 6-25 bpm (Julieta Live RN) Accelerations: 15X15 (Julieta Live RN) Decelerations: None (Julieta Live RN) Pain Scale: 0 (Julieta Live RN) Pain Goal: 0 (Julieta Live RN) Pain Relief Measures: Comfort Measures (Julieta Live RN) Pain Coping: Sleeping (Julieta Live RN) Pitocin (milliunit): Pitocin Remains (milliunits) @ (Annotations: 20) (Julieta Live RN) Comfort Measures: Family Support (Julieta Live RN) LaborFlag: Antepartum (QS system process) Datetime: 12/11/2016 13:10 Anesthesia Level Check: T10- Umbilicus (Julieta Live RN) Anesthesia Comments: New bag hung by Dr. Michaud (Julieta Live, RN) Datetime: 12/11/2016 13:03 NBP Sys/Renita/Mean (mmHg): 114 (QS system process) : 68 (QS system process) : 86 (QS system process) Pulse: 81 (QS system process) LaborFlag: Antepartum (QS system process) Datetime: 12/11/2016 13:00 Monitor Mode: External (Julieta Marhefka, RN) Frequency (min): 1-5 (Julieta Marhefka, RN) Quality: Mild/Moderate (Julieta Marhefka, RN) Duration (sec): 60-80 (Julieta Marhefka, RN) Resting Tone (Palpate): Relaxed (Julieta Marhefka, RN) Monitor Mode: External US (Julieta Marhefka, RN) FHR Baseline Rate : 130 (Julieta Marhefka, RN) FHR Baseline Changes: No Baseline Change (Julieta Marhefka, RN) Variability: Moderate 6-25 bpm (Julieta Marhefka, RN) Accelerations: 15X15 (Julieta Marhefka, RN) Decelerations: None (Julieta Marhefka, RN) Pitocin (milliunit): Pitocin Remains (milliunits) @ (Annotations: 20) (Julieta Marhefka, RN) Datetime: 12/11/2016 12:48 NBP Sys/Renita/Mean (mmHg): 108 (QS system process) : 57 (QS system process) : 74 (QS system process) Pulse: 78 (QS system process) LaborFlag: Antepartum (QS system process) Datetime: 12/11/2016 12:45 Monitor Mode: External (Julieta Marhefka, RN) Frequency (min): 2-4 (Julieta Marhefka, RN) Quality: Mild/Moderate (Julieta Marhefka, RN) Duration (sec): 70-90 (Julieta Marhefka, RN) Resting Tone (Palpate): Relaxed (Julieta Marhefka, RN) Monitor Mode: External US (Julieta Marhefka, RN) FHR Baseline Rate : 130 (Julieta Marhefka, RN) FHR Baseline Changes: No Baseline Change (Julieta Marhefka, RN) Variability: Moderate 6-25 bpm (Julieta Marhefka, RN) Accelerations: None (Julieta Marhefka, RN) Decelerations: None (Julieta Marhefka, RN) Pitocin (milliunit): Pitocin Remains (milliunits) @ (Annotations: 20) (Julieta Marhefka, RN) Datetime: 12/11/2016 12:33 NBP Sys/Renita/Mean (mmHg): 102 (QS system process) : 61 (QS system process) : 74 (QS system process) Pulse: 80 (QS system process) LaborFlag: Antepartum (QS system process) Datetime: 12/11/2016 12:30 Monitor Mode: External (Julieta Marhefka, RN) Frequency (min): 2-3 (Julieta Marhefka, RN) Quality: Mild/Moderate (Julieta Marhefka, RN) Duration (sec): 70-80 (Julieta Marhefka, RN) Resting Tone (Palpate): Relaxed (Julieta Marhefka, RN) Monitor Mode: External US (Julieta Marhefka, RN) FHR Baseline Rate : 135 (Julieta Marhefka, RN) FHR Baseline Changes: No Baseline Change (Julieta Marhefka, RN) Variability: Moderate 6-25 bpm (Julieta Marhefka, RN) Accelerations: 15X15 (Julieta Marhefka, RN) Decelerations: None (Julieta Marhefka, RN) Pitocin (milliunit): Pitocin Remains (milliunits) @ (Annotations: 20) (Julieta Marhefka, RN) Datetime: 12/11/2016 12:20 NBP Sys/Renita/Mean (mmHg): 106 (QS system process) : 65 (QS system process) : 80 (QS system process) Pulse: 82 (QS system process) Respirations: 16 (Julieta Marhefka, RN) LaborFlag: Antepartum (QS system process) Datetime: 12/11/2016 12:15 Monitor Mode: External (Julieta Marhefka, RN) Frequency (min): 2 (Julieta Marhefka, RN) Quality: Mild/Moderate (Julieta Marhefka, RN) Duration (sec): 70-90 (Julieta Marhefka, RN) Resting Tone (Palpate): Relaxed (Julieta Marhefka, RN) Monitor Mode: External US (Julieta Marhefka, RN) FHR Baseline Rate : 135 (Julieta Marhefka, RN) FHR Baseline Changes: No Baseline Change (Julieta Marhefka, RN) Variability: Moderate 6-25 bpm (Julieta Marhefka, RN) Accelerations: 15X15 (Julieta Marhefka, RN) Decelerations: Variable (Julieta Marhefka, RN) Pitocin (milliunit): Pitocin Remains (milliunits) @ (Annotations: 20) (Julieta Marhefka, RN) Datetime: 12/11/2016 12:04 NBP Sys/Renita/Mean (mmHg): 110 (QS system process) : 73 (QS system process) : 86 (QS system process) Pulse: 90 (QS system process) Respirations: 16 (Julieta Live, LYLE) Temperature (F): 98.0 (Julieta Samanthafka, RN) Temperature (C): 36.7 (QS system process) Temperature Route: Oral (Julieta Live, RN) LaborFlag: Antepartum (QS system process) Datetime: 12/11/2016 12:00 Monitor Mode: External (Julieta Live RN) Frequency (min): 1.5-3 (Julieta Live RN) Quality: Mild/Moderate (Julieta Live RN) Duration (sec): 50-70 (Julieta Live RN) Resting Tone (Palpate): Relaxed (Julieta Live RN) Monitor Mode: External US (Julieta Live RN) FHR Baseline Rate : 140 (Julieta Live RN) FHR Baseline Changes: No Baseline Change (Julieta Live RN) Variability: Moderate 6-25 bpm (Julieta Live RN) Accelerations: None (Julieta Live RN) Decelerations: Variable (Julieta Live RN) Pitocin (milliunit): Pitocin Remains (milliunits) @ (Annotations: 20) (Julieta Live RN)
--- NOTE | 2016-12-11 14:10 | L&D Progress Notes ---
PROGRESS NOTES Datetime Report Generated by CPN: 12/11/2016 14:10 PROGRESS NOTE Impression: Reassuring Heart Rate Procedures: Sterile Vag Exam Procedures- Other: AROM of forebag Plan: Continue Present Management Vital Signs : Reviewed; Within Normal Limits Comment: SVE as above-AROM of forebag-clear fluid. UC pattern dysfunctional w 20 units Pitocin infusing. Patient comfortable with epidural. VAGINAL EXAM Dilatation: 6 Effacement: 70 Station: -1 MEMBRANES Membranes: Ruptured Amniotic Fluid Color: Clear FETUS A FHR - Baseline: 130 SIGNATURE SIGNATURE: [id number] Assignment: Rommel Henriquez DO Signature: with User ID: [email or web address] : with User ID: [email or web address] : I personally evaluated and examined the patient in conjunction with the P and agree with the assessment, treatment plan and disposition.
[2016-12-11] MEDS ORDERED: MISOPROSTOL 0.2 MG TABLET ONE (15:47)
[2016-12-11] MEDS ORDERED: LIDOCAINE 1% INJ-PF (10 MG/ML) 30 ML SDV ONE (15:47)
--- NOTE | 2016-12-11 16:01 | L&D Flow Sheet ---
LD Flowsheet Datetime Report Generated by CPN: 12/11/2016 16:00 Datetime: 12/11/2016 15:49 NBP Sys/Renita/Mean (mmHg): 94 (QS system process) : 55 (QS system process) : 69 (QS system process) Pulse: 82 (QS system process) LaborFlag: Antepartum (QS system process) Datetime: 12/11/2016 15:35 NBP Sys/Renita/Mean (mmHg): 93 (QS system process) : 52 (QS system process) : 68 (QS system process) Pulse: 75 (QS system process) Respirations: 16 (Julieta Marhefka, RN) LaborFlag: Antepartum (QS system process) Datetime: 12/11/2016 15:19 Patient Position/Activity: Left Lateral; Peanut Ball (Julieta Ruddyka, RN) Datetime: 12/11/2016 15:18 NBP Sys/Renita/Mean (mmHg): 109 (QS system process) : 64 (QS system process) : 80 (QS system process) Pulse: 89 (QS system process) Respirations: 16 (Julieta Maradafka, RN) LaborFlag: Antepartum (QS system process) Datetime: 12/11/2016 15:15 Monitor Mode: Internal (Julieta Marhefka, RN) Frequency (min): 2-3 (Julieta Marhefka, RN) Quality: Mild/Moderate (Julieta Marhefka, RN) Duration (sec): 60-70 (Julieta Marhefka, RN) Resting Tone (Palpate): Relaxed (Julieta Marhefka, RN) Contraction Comments: MIU=692 (Julieta Marhefka, RN) Contraction Comments: Resting tone 15-20 Intensity 75-85 (Julieta Marhefka, RN) Monitor Mode: External US (Julieta Marhefka, RN) FHR Baseline Rate : 130 (Julieta Marhefka, RN) FHR Baseline Changes: No Baseline Change (Julieta Marhefka, RN) Variability: Moderate 6-25 bpm (Julieta Marhefka, RN) Accelerations: 15X15 (Julieta Marhefka, RN) Decelerations: Late (Julieta Marhefka, RN) Pitocin (milliunit): Pitocin Remains (milliunits) @ (Annotations: 18) (Julieta Marhefka, RN) Datetime: 12/11/2016 15:03 NBP Sys/Renita/Mean (mmHg): 111 (QS system process) : 63 (QS system process) : 79 (QS system process) Pulse: 88 (QS system process) LaborFlag: Antepartum (QS system process) Datetime: 12/11/2016 15:00 Monitor Mode: Internal (Julieta Marhefka, RN) Frequency (min): 2-3 (Julieta Marhefka, RN) Duration (sec): 70-80 (Julieta Marhefka, RN) Resting Tone (Palpate): Relaxed (Julieta Marhefka, RN) Contraction Comments: Resting tone 20 Intensity 70-75 (Julieta Marhefka, RN) Monitor Mode: External US (Julieta Marhefka, RN) FHR Baseline Rate : 135 (Julieta Marhefka, RN) FHR Baseline Changes: No Baseline Change (Julieta Marhefka, RN) Variability: Moderate 6-25 bpm (Julieta Marhefka, RN) Accelerations: None (Julieta Marhefka, RN) Decelerations: None (Julieta Marhefka, RN) Pitocin (milliunit): Pitocin Remains (milliunits) @ (Annotations: 18) (Julieta Marhefka, RN) Datetime: 12/11/2016 14:49 NBP Sys/Renita/Mean (mmHg): 103 (QS system process) : 64 (QS system process) : 78 (QS system process) Pulse: 75 (QS system process) LaborFlag: Antepartum (QS system process) Datetime: 12/11/2016 14:45 Monitor Mode: Internal (Julieta Live, RN) Frequency (min): 2-3 (Julieta Foxka, RN) Duration (sec): 70-80 (Julieta Live, RN) Resting Tone (Palpate): Relaxed (Julieta Singhfka, RN) Contraction Comments: Resting tone 25 Intensity 60-75 (Julieta Samanthafka, RN) Monitor Mode: External US (Julieta Live, RN) FHR Baseline Rate : 130 (Julieta Samanthafka, RN) FHR Baseline Changes: No Baseline Change (Julieta Singhfka, RN) Variability: Moderate 6-25 bpm (Julieta Marhefka, RN) Accelerations: None (Julieta Samanthafka, RN) Decelerations: None (Julieta Samanthafka, RN) Pitocin (milliunit): Pitocin Remains (milliunits) @ (Annotations: 18) (Julieta Samanthafka, RN) Datetime: 12/11/2016 14:33 NBP Sys/Renita/Mean (mmHg): 104 (QS system process) : 64 (QS system process) : 80 (QS system process) Pulse: 81 (QS system process) LaborFlag: Antepartum (QS system process) Datetime: 12/11/2016 14:30 Monitor Mode: Internal (Julieta Live, RN) Frequency (min): 1.5-2 (Julieta Live, RN) Duration (sec): 70-90 (Julieta Live, RN) Resting Tone (Palpate): Relaxed (Julieta Live, RN) Contraction Comments: BFD=064 Intensity 65-70 Resting Tone 20-25 (Julieta Live, RN) Monitor Mode: External US (Julieta Live, RN) FHR Baseline Rate : 135 (Julieta Live, RN) FHR Baseline Changes: No Baseline Change (Julieta Live, RN) Variability: Moderate 6-25 bpm (Julieta Samanthafka, RN) Accelerations: 15X15 (Julieta Samanthafka, RN) Decelerations: None (Julieta Live, RN) Pitocin (milliunit): Pitocin Decreased to (milliunits) @ (Annotations: 18) (Julieta Live, RN) Datetime: 12/11/2016 14:19 NBP Sys/Renita/Mean (mmHg): 114 (QS system process) : 71 (QS system process) : 88 (QS system process) Pulse: 85 (QS system process) Respirations: 15 (Julieta Maradafka, RN) Temperature (F): 98.4 (Julieta Marhefka, RN) Temperature (C): 36.9 (QS system process) Temperature Route: Oral (Julieta Marhefka, RN) LaborFlag: Antepartum (QS system process) Datetime: 12/11/2016 14:15 Monitor Mode: Internal (Julieta Live, RN) Frequency (min): 2 (Julieta Samanthafka, RN) Duration (sec): 70-80 (Julieta Samanthafka, RN) Resting Tone (Palpate): Relaxed (Julieta Singhfsridevi, RN) Contraction Comments: QPD=882 (Julieta Samanthafsridevi, RN) Contraction Comments: Intensity 45-75 Resting tone 15-20 (Julieta Singhfka, RN) Monitor Mode: External US (Julieta Live, RN) FHR Baseline Rate : 135 (Julieta Live RN) FHR Baseline Changes: No Baseline Change (Julieta Marhefka, RN) Variability: Moderate 6-25 bpm (Julieta Marhefka, RN) Accelerations: 15X15 (Julieta Marhefka, RN) Decelerations: None (Julieta Marhefka, RN) Pitocin (milliunit): Pitocin Remains (milliunits) @ (Annotations: 20) (Julieta Marhefka, RN) Datetime: 12/11/2016 14:09 Patient Position/Activity: High Fowlers (Julieta Samanthafka, RN) Datetime: 12/11/2016 14:03 NBP Sys/Renita/Mean (mmHg): 106 (QS system process) : 59 (QS system process) : 77 (QS system process) Pulse: 77 (QS system process) LaborFlag: Antepartum (QS system process) Datetime: 12/11/2016 14:02 Monitor Interventions for UA: IUPC Inserted (Julieta Live, LYLE) Datetime: 12/11/2016 14:01 Dilatation (cm): 5.0 (Julieta Live RN) Effacement (%): 70 (Julieta Live RN) Station: -1 (uJlieta Live RN) Exam by: Sade Begum CNM (Julieta Live RN) Membrane Status: Ruptured (Julieta Live RN) Membranes Rupture Method: Artificial (Julieta Live RN) Amniotic Fluid Color: Clear (Julieta Live RN) Amniotic Fluid Amount: Moderate (Julieta Live RN) Datetime: 12/11/2016 14:00 Monitor Mode: External (Julieta Live RN) Frequency (min): 1-4 (Julieta Live RN) Quality: Mild/Moderate (Julieta Live RN) Duration (sec): 70-90 (Julieta Live RN) Resting Tone (Palpate): Relaxed (Julieta Live RN) Monitor Mode: External US (Julieta Live RN) FHR Baseline Rate : 135 (Julieta Live RN) FHR Baseline Changes: No Baseline Change (Julieta Live RN) Variability: Moderate 6-25 bpm (Julieta Live RN) Accelerations: None (Julieta Live RN) Decelerations: None (Julieta Live RN) Pitocin (milliunit): Pitocin Remains (milliunits) @ (Annotations: 20) (Julieta Live RN)
[2016-12-11] MEDS ORDERED: BENZOCAINE/MENTHOL AEROSOL SPRAY 56 ML TOP PRN (17:08)
[2016-12-11] MEDS ORDERED: DIBUCAINE 1% OINTMENT 28 GM TP PRN (17:08)
[2016-12-11] MEDS ORDERED: MEASLES,MUMPS&RUBELLA VACC/PF 0.5 ML VIAL SUBCUT PRN (17:08)
[2016-12-11] MEDS ORDERED: OXYTOCIN/NORMAL SALINE 1,000 ML IV PRN (17:08)
[2016-12-11] MEDS ORDERED: ZOLPIDEM TARTRATE 5 MG TABLET PO PRN (17:08)
[2016-12-11] MEDS ORDERED: DIPH/PERTUSS(ACELL)/TETANUS VAC/PF 0.5 ML SYR (>=10YO) IM PRN (17:08)
[2016-12-11] MEDS ORDERED: ACETAMINOPHEN WITH CODEINE #3 TABLET PO PRN (17:08)
--- NOTE | 2016-12-11 18:00 | L&D Flow Sheet ---
LD Flowsheet Datetime Report Generated by CPN: 12/11/2016 18:00 Datetime: 12/11/2016 17:48 NBP Sys/Renita/Mean (mmHg): 121 (QS system process) : 58 (QS system process) : 83 (QS system process) Pulse: 84 (QS system process) Datetime: 12/11/2016 17:35 Stage of : Recovery (Julieta Live RN) Pain Scale: 1 (Julieta Live RN) Pain Presence: Intermittent (Julieta Live RN) Pain Type: Cramping (Julieta Live RN) Pain Location: Abdomen (Julieta Live RN) Pain Goal: 0 (Julieta Live RN) Pain Relief Measures: Comfort Measures (Julieta Live RN) Datetime: 12/11/2016 17:34 Stage of : Recovery (Julieta Live RN) NBP Sys/Renita/Mean (mmHg): 125 (QS system process) : 58 (QS system process) : 83 (QS system process) Pulse: 90 (QS system process) Respirations: 16 (Julieta Live RN) Datetime: 12/11/2016 17:20 Stage of : Recovery (Julieta Live RN) Pain Scale: 1 (Julieta Live RN) Pain Presence: Intermittent (Julieta Live RN) Pain Type: N/A (Julieta Live RN) Pain Location: Abdomen (Julieta Live RN) Pain Goal: 0 (Julieta Live RN) Pain Relief Measures: Comfort Measures (Julieta Live RN) Datetime: 12/11/2016 17:05 Stage of : Recovery (Julieta Live RN) Pain Scale: 1 (Julieta Live RN) Pain Presence: Intermittent (Annotations: Pt feeling pain with fundal rubs ) (Julieta Live RN) Pain Type: Cramping (Julieta Live RN) Pain Location: Abdomen (Julieta Live RN) Pain Goal: 0 (Julieta Live RN) Pain Relief Measures: Comfort Measures (Julieta Live RN) Datetime: 12/11/2016 16:50 Stage of : Recovery (Julieta Live RN) Pain Scale: 0 (Julieta Live RN) Pain Presence: None/Denies (Julieta Live RN) Pain Type: N/A (Julieta Live RN) Pain Goal: 0 (Julieta Live RN) Pain Relief Measures: Comfort Measures (Julieta Marhefka, RN) Datetime: 12/11/2016 16:39 Comments: viable baby girl (Julieta Maradafka, RN) Datetime: 12/11/2016 16:38 Pushing Position: Pushing with Contractions (Julieta Marhefka, RN) Pushing Progress: Descent with Pushing; with Pushing (Julieta Marhefka, RN) Datetime: 12/11/2016 16:36 Communication Comments: Sade Begum, CNM @ bedside. (Julieta Live, LYLE) Datetime: 12/11/2016 16:34 NBP Sys/Renita/Mean (mmHg): 119 (QS system process) : 70 (QS system process) : 90 (QS system process) Pulse: 96 (QS system process) Respirations: 16 (Julieta Live RN) LaborFlag: Antepartum (QS system process) Datetime: 12/11/2016 16:30 Monitor Mode: Internal (Julieta Live RN) Frequency (min): 1-3 (Julieta Live RN) Duration (sec): 70-90 (Julieta Live RN) Resting Tone (Palpate): Relaxed (Julieta Live RN) Contraction Comments: Resting tone 20-25/ Intensity 55-75 (Julieta Live RN) Monitor Mode: External US (Julieta Live RN) FHR Baseline Rate : 130 (Julieta Live RN) FHR Baseline Changes: No Baseline Change (Julieta Marhefka, RN) Variability: Moderate 6-25 bpm (Julieta Marhefka, RN) Accelerations: 15X15 (Julieta Marhefka, RN) Decelerations: Late (Julieta Marhefka, RN) Datetime: 12/11/2016 16:28 Dilatation (cm): 10.0 (Julieta Marhefka, RN) Effacement (%): 100 (Ujlieta Marhefka, RN) Station: 2 (Julieta Marhefka, RN) Exam by: RVaishali Live RN (Julieta Marhefka, RN) Datetime: 12/11/2016 16:18 NBP Sys/Renita/Mean (mmHg): 94 (QS system process) : 53 (QS system process) : 68 (QS system process) Pulse: 93 (QS system process) LaborFlag: Antepartum (QS system process) Datetime: 12/11/2016 16:15 Monitor Mode: Internal (Julieta Marhefka, RN) Frequency (min): 2-3 (Julieta Marhefka, RN) Duration (sec): 70-90 (Julieta Marhefka, RN) Resting Tone (Palpate): Relaxed (Julieta Marhefka, RN) Contraction Comments: Resting tone 20-25/ Intensity 60-100 (Julieta Marhefka, RN) Monitor Mode: External US (Julieta Marhefka, RN) FHR Baseline Rate : 135 (Julieta Marhefka, RN) FHR Baseline Changes: No Baseline Change (Julieta Marhefka, RN) Variability: Moderate 6-25 bpm (Julieta Marhefka, RN) Accelerations: None (Julieta Marhefka, RN) Decelerations: None (Julieta Marhefka, RN) Pitocin (milliunit): Pitocin Remains (milliunits) @ (Annotations: 18) (Julieta Marhefka, RN) Datetime: 12/11/2016 16:03 NBP Sys/Renita/Mean (mmHg): 94 (QS system process) : 54 (QS system process) : 70 (QS system process) Pulse: 83 (QS system process) LaborFlag: Antepartum (QS system process) Datetime: 12/11/2016 16:00 Monitor Mode: Internal (Julieta Live RN) Frequency (min): 2 (Julieta Live RN) Duration (sec): 70-100 (Julieta Live RN) Resting Tone (Palpate): Relaxed (Julieta Live RN) Contraction Comments: Resting Tone 25-35/ Intensity 65-75 (Julieta Live RN) Monitor Mode: External US (Julieta Live RN) FHR Baseline Rate : 140 (Julieta Live RN) FHR Baseline Changes: No Baseline Change (Julieta Live RN) Variability: Moderate 6-25 bpm (Julieta Live RN) Accelerations: None (Julieta Live RN) Decelerations: None (Julieta Live RN) Pitocin (milliunit): Pitocin Remains (milliunits) @ (Annotations: 18) (Julieta Live RN)
[2016-12-11] MEDS ORDERED: IBUPROFEN 800 MG TABLET ONE (18:01)
[2016-12-11] MEDS: IBUPROFEN 800 MG TABLET PO SCH (18:08)
[2016-12-11] MEDS ORDERED: NICOTINE 21 MG/24 HR PATCH.TD24 TD ONE (20:00)
--- NOTE | 2016-12-11 20:04 | Delivery Summary ---
Del Sum A-C Datetime Report Generated by CPN: 12/11/2016 20:03 ADMISSION DATA Chief Complaint: Suspected Ruptured Membranes Indication for Induction: Not Applicable Admission Impression: Term, Intrauterine ; No Active Labor; Ruptured Membranes Admit Provider Comments: Term Srom, early labor. epidural placed, gbs neg. for pitocin augmentations DELIVERY PERSONNEL Delivery Doctor:: Carey Begum CNM Labor and Delivery Nurse:: Julieta Live RNreliability technicians Nurse:: Mehreen Otero RN Nursery Nurse:: Mehreen Otero RN Sanitarian/ZOO DIRECTOR: Shahnaz Avila, OIL FIELD TECHNICIAN MATERNAL INFORMATION Delivery Anesthesia: Epidural Medications After Delivery: Pitocin Bolus-Please Comment Meds After Delivery Comment: 20 Units Pitocin/ 1000ml NS Estimated Blood Loss (ml): 175 Maternal Complications: None Provider Comments: of live female in vertex OA to KHANH at 1639 under epidural anesthesia. Nuchal cord x1 reduced prior to delivery of shoulders. Spontaneous respirations and cry. 3-vessel cord. Apgars 9-9. Cord clamped x2, after 2 min delay, then cut by mother of FOB. Placenta, membranes, and cord expelled at 1647, [place] presentation. Perineum intact. FF at U-3. Uterine sweep. Placenta inspected and appears intact. Patient tolerated procedure well. LABOR SUMMARY EDC: 12/29/2016 00:00 No. Babies in Womb: 1 Attempted: No Labor Anesthesia: Epidural LABOR INFORMATION Reason for Induction: Not Applicable Onset of Labor: 12/11/2016 14:01 Complete Dilatation: 12/11/2016 16:28 Oxytocin: Augmentation Group B Beta Strep: Negative Antibiotics # of Doses: 0 Antibiotics Time of Last Dose: N/A Steroids Given: None Reason Steroids Not Administered: Not Applicable MEMBRANES Membranes Rupture Method: Spontaneous Rupture of Membranes: 12/10/2016 00:01 Length of Rupture (hr): 40.63 Amniotic Fluid Color: Clear Amniotic Fluid Amount: Moderate Amniotic Fluid Odor: Normal STAGES OF LABOR Stage 1 hr: 2 Stage 1 min: 27 Stage 2 hr: 0 Stage 2 min: 11 Stage 3 hr: 0 Stage 3 min: 8 Total Time in Labor hr: 2 Total Time in Labor min: 46 VAGINAL DELIVERY Episiotomy: None Laceration Extension: N/A Laceration Type: None Laceration Repair: Not Applicable Sponge Count Correct: N/A Sharps Count Correct: Yes BABY A INFORMATION Infant Delivery Date/Time: 12/11/2016 16:39 Method of Delivery: Vaginal Born in Route : No : N/A Forceps: N/A Vacuum Extraction: N/A Shoulder Dystocia : No PRESENTATION/POSITION BABY A Presentation: Cephalic Cephalic Presentation: Vertex Vertex Position: Right Occipital Anterior Breech Presentation: N/A PLACENTA INFORMATION BABY A Placenta Delivery Time : 12/11/2016 16:47 Placenta Method of Delivery: Spontaneous Placenta Status: Delivered SCORES BABY A Heart Rate 1 min: >100 bpm Resp Effort 1 min: Good Cry Reflex Irritability 1 min: Cough or Sneeze or Pulls Away Muscle Tone 1 min: Active Motion Color 1 min: Body [place], Extremities Blue Resuscitation Effort 1 min: Tactile Stimulation SCORE 1 MIN: 9 Heart Rate 5 min: >100 bpm Resp Effort 5 min: Good Cry Reflex Irritability 5 min: Cough or Sneeze or Pulls Away Muscle Tone 5 min: Active Motion Color 5 min: Body [place], Extremities Blue Resuscitation Effort 5 min: Tactile Stimulation SCORE 5 MIN: 9 INFANT INFORMATION BABY A Gestational Age at Delivery: 37.3 Gestational Status: Early Term- 37- 38.6 Weeks Infant Outcome : Liveborn Condition : Stable Sex: Female IDENTIFICATION BABY A Verification Date/Time: 12/11/2016 16:47 ID Band Number: [id number] Mother's Name Verified: Yes Infant RN Verifying Infant: HVaishali Rodgers RN/A.Cisse RN WEIGHT/LENGTH BABY A Birthweight (gm): 2750 Weight (lb): 6 Weight (oz): 1 Length (in): 19.50 Length (cm): 49.53 CORD INFORMATION BABY A No. Cord Vessels: 3 Nuchal Cord : Around Neck x1, Loose Cord Blood Taken: Yes-For Storage (Mom's Blood type +) Infant Suction: Mouth; Nose ASSESSMENT BABY A Infant Complications: None Physical Findings at Delivery: Within Normal Limits Infant Respirations: Appears Normal Skin to Skin: Yes Skin to Skin Time (min): 60 Bid Manager/ALS Called : No Care By: Mariaa Otero RN Transferred To: Remains with Mother BABY B INFORMATION : N/A SIGNATURES Assignment: Rommel Henriquez DO Signature: with User ID: [email or web address] : with User ID: [email or web address] : I personally evaluated and examined the patient in conjunction with the MLP and agree with the assessment, treatment plan and disposition.
--- NOTE | 2016-12-11 20:08 | Admission Physical ---
Datetime Report Generated by CPN: 12/11/2016 20:08 CURRENT ADMISSION Hx Assessment: The History has been Reviewed and is Current Chief Complaint: Suspected Ruptured Membranes Indication for Induction: Not Applicable Admit Plan: Admit to Unit; Initiate Labor Protocol ALLERGIES Medication Allergies: No Medication Allergies: No Known Drug Allergies (12/11/2016) Latex: No Latex Allergies Food Allergies: NA Environmental Allergies: NA OBSTETRICAL HISTORY EDC: 12/29/2016 00:00 : 2 Para: 1 Term: 1 : 0 SAB: 0 IAB: 0 Ectopic: 0 Livin Cesareans: 0 VBACs: 0 Multiple Births: 0 Gestational Diabetes: No Rh Sensitization: No Incompetent Cervix: No DAYAMI: No Infertility: No ART Treatment: No Uterine Anomaly: No IUGR: No Hx Previous C/S: No Macrosomia: No Hx Loss/Stillborn: No PIH: No Hx : No Placenta Previa/Abruption: No Depression/PP Depression: No PTL/PROM: No Post Hemorrhage: Yes Current Procedures: Ultrasound Obstetrical History Comments: G1: 11/2015, hemorrhage? gestational thrombocytopenia, G2: current, late care, persistent elevated WBC SEE RECORDS Alcohol: No Marijuana : No Cocaine: No Other Illicit Drugs: No Cigarettes: Current Everyday Smoker. [id number] MEDICAL HISTORY Diabetes: No Blood Transfusion: No Pulmonary Disease (Asthma, TB): No Breast Disease: No Hypertension: No Provisioning Specialist Surgery: No Heart Disease: No Hosp/Surgery: No Autoimmune Disorder: No Anesthetic Complications: No Kidney Disease: No Abnormal Pap Smear: No Neuro/Epilepsy: No Psychiatric Disorders: No Other Medical Diseases: No Hepatitis/Liver Disease: No Significant Family History: No Varicosities/Phlebitis: No Trauma/Violence : No Thyroid Dysfunction: No INFECTIOUS HISTORY Gonorrhea: No Genital Herpes: No Chlamydia: Yes Tuberculosis: No Syphilis: No Hepatitis: No HIV/AIDS Exposure: No Rash or Viral Illness: No HPV: No Infectious History Comments: 2015 PHYSICAL EXAM General: Normal HEENT: Deferred Neurologic: Deferred Thyroid: Deferred Heart: Normal Lungs: Normal Breast: Deferred Back: Deferred Abdomen: Normal Genitourinary Exam: Normal Extremities: Normal DTRs: Normal Pelvic Type: Adequate Vital Signs: Reviewed; Within Normal Limits VAGINAL EXAM Dilatation: 6 Effacement: 70 Station: -1 MEMBRANES Membranes: Ruptured Amniotic Fluid Color: Clear FETUS A EGA: 37.3 FHR- Baseline: 105 Variability: Moderate 6-25bpm Accelerations: 15X15 Decelerations: None FHR Category: Category I Admit Comment: Term Srom, early labor. epidural placed, gbs neg. for pitocin augmentations PLANS FOR LABOR AND DELIVERY Labor and Delivery: None Pain Management: Epidural Feeding Preference: Both Benefit of Breast Feed Discussed: Yes Circumcision: N/A INFORMED CONSENT Signature: with User ID: [email or web address] : I personally evaluated and examined the patient in conjunction with the MLP and agree with the assessment, treatment plan and disposition.
[2016-12-11] MEDS: DOCUSATE SODIUM 100 MG CAPSULE PO SCH (20:16)
[2016-12-11] MEDS: FERROUS SULFATE 325 MG TABLET PO SCH (20:16)
[2016-12-11] MEDS: ACETAMINOPHEN WITH CODEINE #3 TABLET PO PRN (20:20)
[2016-12-12] MEDS: ACETAMINOPHEN WITH CODEINE #3 TABLET PO PRN ×3 (01:44→12:41)
[2016-12-12] MEDS: IBUPROFEN 800 MG TABLET PO SCH ×3 (05:23→21:21)
--- NOTE | 2016-12-12 07:00 | L&D Flow Sheet ---
LD Flowsheet Datetime Report Generated by CPN: 12/12/2016 07:00 Datetime: 12/11/2016 19:20 Pain Scale: 2 (Erum Condon RN) Pain Presence: Intermittent (Erum Condon RN) Pain Type: Cramping (Erum Condon RN) Pain Location: Abdomen (Erum Condon RN) Pain Goal: 1 (Erum Condon RN)
[2016-12-12 07:35] LABS: HEMATOCRIT 28.9 % (36.0-47.0); HEMOGLOBIN 9.2 g/dL (12.0-15.5); HGB HCT DIFFERENCE -1.3; MEAN CORPUSCULAR HEMOGLOBIN 26.2 pg (27.0-33.4); MEAN CORPUSCULAR HGB CONC 31.7 g/dL (32.0-36.0); MEAN CORPUSCULAR VOLUME 83 fl (80-97); RED CELL DISTRIBUTION WIDTH 15.1 % (11.5-14.0)
[2016-12-12] MEDS: DOCUSATE SODIUM 100 MG CAPSULE PO SCH ×2 (09:21→17:11)
[2016-12-12] MEDS: FERROUS SULFATE 325 MG TABLET PO SCH ×2 (09:21→17:11)
[2016-12-12] MEDS: SENNOSIDES/DOCUSATE 8.6-50 MG 1 EACH TABLET PO SCH (09:21)
[2016-12-12] MEDS: PRENATAL VITAMIN W-O CA NO5/FE FUMARATE/FA CAPSULE PO SCH (09:22)
[2016-12-12 09:54] LABS: ANISOCYTOSIS SLIGHT; BAND NEUTROPHILS % (MANUAL) 6 % (3-5); BASOPHILS % (MANUAL) 0 % (0-2); EOSINOPHILS % (MANUAL) 3 % (0-6); LYMPHOCYTES % (MANUAL) 23 % (13-45); SMUDGE CELLS PRESENT; TOTAL CELLS COUNTED 100; TOXIC GRANULATION SLIGHT
--- NOTE | 2016-12-12 10:11 | PDOC PROGRESS REPORT ---
Subjective-OB Subjective: Post Delivery Day: 26 year old. Denies any needs at this time Physical Exam (OB) Vital Signs: Temp Pulse Resp BP Pulse Ox 97.8 F 83 15 105/75 100 12/12/16 07:34 12/12/16 07:34 12/12/16 07:34 12/12/16 07:34 12/12/16 07:34 Intake & Output 12/11/16 12/12/16 12/13/16 06:59 06:59 06:59 Weight 62.55 kg - Lochia Lochia Amount: Scant < 10 ml Lochia Color: Rubra/Red - Abdomen Description: Tender, Soft, Round Hernia Present: No Bowel Sounds: Normoactive Flatus Presence: Present Stool: No Fundal Description: Firm, Midline Fundal Height: u/u - u/2 Objective-Diagnostic Laboratory: 12/12/16 06:39 12/12/16 06:39 WBC 24.0 H RBC 3.50 L Hgb 9.2 L Hct 28.9 L MCV 83 MCH 26.2 L MCHC 31.7 L RDW 15.1 H Plt Count 269 Seg Neutrophils % Not Reportable Lymphocytes % Not Reportable Monocytes % Not Reportable Eosinophils % Not Reportable Basophils % Not Reportable Absolute Neutrophils Not Reportable Absolute Lymphocytes Not Reportable Absolute Monocytes Not Reportable Absolute Eosinophils Not Reportable Absolute Basophils Not Reportable
--- NOTE | 2016-12-12 11:27 | PDOC CONSULTATION ---
Addendum entered and electronically signed by GRAY MIRELES CNM 12/13/16 09:44: Discharge Diagnosis - Discharge Diagnosis (1) Leukocytosis, unspecified Is this a current diagnosis for this admission?: Yes (2) Is this a current diagnosis for this admission?: Yes (3) Vaginal delivery Is this a current diagnosis for this admission?: Yes Original Note: Consultation Consult Date: 12/12/16 Attending physician:: JOVANI GABRIEL Consult reason:: Leukocytosis History of Present Illness Admission Date/PCP: 12/11/16 03:08 HERIBERTO RIVERA MD Patient complains of: Leukocytosis status post delivery History of Present Illness: ZIGGY HO is a 26 year old female with recent history of leukocytosis. She recently was and had delivery, she seems to be doing okay after delivery, she seems to be afebrile does not have any sort of septic appearance. There doesn't seem to be any focus infection. Of note the white count is 25K , there is bandemia. Primarily neutrophils. Hemoglobin is in the 9 range, platelets are normal. In review of her labs, she had delivery of her previous child in 09/2015, at that time she also had a leukocytosis, similar to now, with a bandemia, we don't have any labs weeks after delivery. She tells me though, that she had labs done 3-4 weeks after delivery and was then told that her white count had normalized. At that time her INTEGRATION ANALYST was planning on sending her to hematology but because the counts normalized they decided against it. She feels generally well, denies any fevers chills night sweats. Past Medical History Pulmonary Medical History: Reports: Asthma - As a child, no medications needed in several years Neurological Medical History: Reports: Seizures - As a child, no medications needed in several years. Hematology: Reports: Other - Leukocytosis Social History Smoking Status: Current Every Day Smoker - Advance Directive Resuscitation Status: Full Code Family History Family History: None Parental Family History Reviewed: Yes Children Family History Reviewed: Yes Sibling(s) Family History Reviewed.: Yes Medication/Allergy Home Medications: Promethazine HCl [Phenergan 25 mg Tablet] 1 - 2 tab PO Q6H PRN #20 tablet Allergies/Adverse Reactions: No Known Drug Allergies Allergy (Verified 12/11/16 03:07) Review of Systems Constitutional: ABSENT: chills, fever(s), headache(s), weight gain, weight loss Eyes: ABSENT: visual disturbances Ears: ABSENT: hearing changes Cardiovascular: ABSENT: chest pain, dyspnea on exertion, edema, orthropnea, palpitations Respiratory: ABSENT: cough, hemoptysis Gastrointestinal: ABSENT: abdominal pain, constipation, diarrhea, hematemesis, hematochezia, nausea, vomiting Genitourinary: ABSENT: dysuria, hematuria Musculoskeletal: ABSENT: joint swelling Integumentary: ABSENT: rash, wounds Neurological: ABSENT: abnormal gait, abnormal speech, confusion, dizziness, focal weakness, syncope Psychiatric: ABSENT: anxiety, depression, homidical ideation, suicidal ideation Endocrine: ABSENT: cold intolerance, heat intolerance, polydipsia, polyuria Hematologic/Lymphatic: ABSENT: easy bleeding, easy bruising Physical Exam Vital Signs: Temp Pulse Resp BP Pulse Ox 97.8 F 83 15 105/75 100 12/12/16 10:48 12/12/16 10:48 12/12/16 10:48 12/12/16 07:34 12/12/16 10:48 Intake & Output 12/11/16 12/12/16 12/13/16 06:59 06:59 06:59 Weight 62.55 kg Baby 1 Female 2.75 kg General appearance: PRESENT: no acute distress, well-developed, well-nourished Head exam: PRESENT: atraumatic, normocephalic Eye exam: PRESENT: conjunctiva pink, EOMI, PERRLA. ABSENT: scleral icterus Ear exam: PRESENT: normal external ear exam Mouth exam: PRESENT: moist, tongue midline Neck exam: ABSENT: carotid bruit, JVD, lymphadenopathy, thyromegaly Respiratory exam: PRESENT: clear to auscultation fabio. ABSENT: rales, rhonchi, wheezes Cardiovascular exam: PRESENT: RRR. ABSENT: diastolic murmur, rubs, systolic murmur Pulses: PRESENT: normal dorsalis pedis pul Vascular exam: PRESENT: normal capillary refill GI/Abdominal exam: PRESENT: normal bowel sounds, soft. ABSENT: distended, guarding, mass, organolmegaly, rebound, tenderness Rectal exam: PRESENT: deferred Extremities exam: PRESENT: full ROM. ABSENT: calf tenderness, clubbing, pedal edema Neurological exam: PRESENT: alert, awake, oriented to person, oriented to place , oriented to time, oriented to situation, CN II-XII grossly intact. ABSENT: motor sensory deficit Psychiatric exam: PRESENT: appropriate affect, normal mood. ABSENT: homicidal ideation, suicidal ideation Skin exam: PRESENT: dry, intact, warm. ABSENT: cyanosis, rash Results Laboratory Results: 12/12/16 06:39 12/12/16 06:39 WBC 24.0 H RBC 3.50 L Hgb 9.2 L Hct 28.9 L MCV 83 MCH 26.2 L MCHC 31.7 L RDW 15.1 H Plt Count 269 Seg Neutrophils % Not Reportable Lymphocytes % Not Reportable Monocytes % Not Reportable Eosinophils % Not Reportable Basophils % Not Reportable Absolute Neutrophils Not Reportable Absolute Lymphocytes Not Reportable Absolute Monocytes Not Reportable Absolute Eosinophils Not Reportable Absolute Basophils Not Reportable Assessment & Plan - Diagnosis (1) Leukocytosis, unspecified Qualifiers: Leukocytosis type: leukemoid reaction Qualified Code(s): D72.823 - Leukemoid reaction Is this a current diagnosis for this admission?: YesPlan: Most likely this will be a leukemoid reaction related to , generally we would do a deficiency workup and we would probably sent for flow cytometry for leukemia lymphoma panel as well as Fish panel for BCR-ABL. However this certainly can be done as an outpatient. I told the staff to go ahead and send iron studies, B12 levels if she does not need to be stuck again, however if she needs a redraw we should do that as an outpatient. I will plan on seeing her 3- 4 weeks after discharge, I would like to monitor her counts then. If they still are persistently elevated at that time, we could send all this workup then. From a hematologic standpoint, she could be discharged home. - Time Time Spent: 50 to 70 Minutes Critical Time spent with patient: 25-34 minutes Anticipated discharge: Home Within: within 24 hours
[2016-12-12 11:53] LABS: FERRITIN 5.44 ng/mL (6.2-137.0)
[2016-12-12 12:23] LABS: FOLATE 9.17 ng/mL (>2.76)
--- NOTE | 2016-12-12 18:01 | L&D General Admission ---
General Admit Datetime Report Generated by CPN: 12/12/2016 18:00 INFORMATION Patient Age: 26 (12/11/2016 02:05:QS system process) EDC: 12/29/2016 00:00 (12/11/2016 02:20:Tami Pennington RN) : 2 (12/11/2016 02:20:Tami Pennington RN) Para: 1 (12/11/2016 02:20:Tami Pennington RN) Term: 1 (12/11/2016 02:20:Celsa Downing RN) : 0 (12/11/2016 02:20:Celsa Downing RN) Spontaneous Abortions: 0 (12/11/2016 02:20:Celsa Downing RN) Induced Abortions: 0 (12/11/2016 02:20:Celsa Downing RN) Livin (12/11/2016 02:20:Celsa Downing RN) Cesareans: 0 (12/11/2016 02:20:Celsa Downing RN) VBACs: 0 (12/11/2016 02:20:Celsa Downing RN) Ectopic: 0 (12/11/2016 02:20:Celsa Downing RN) Multiple Births: 0 (12/11/2016 02:20:Celsa Downing RN) Baby, Number in Womb: 1 (12/11/2016 02:20:Celsa Downing RN) CARE Primary Electronic Funds Transfer Coordinator: [facility] (12/11/2016 02:20:Tami Pennington RN) Adequate Care: Yes (12/11/2016 02:20:Tami Pennington RN) Height (in): 60 (12/11/2016 03:09:QS system process) ALLERGIES Medication Allergy: No (12/11/2016 02:20:Tami Pennington RN) Medication Allergies: No Known Drug Allergies (12/11/2016) (12/11/2016 03:07:QS system process) Latex Allergy: No Latex Allergies (12/11/2016 02:20:Tami Pennington RN) Food Allergies: NA (12/11/2016 02:20:Tami Pennington RN) Environmental Allergies: NA (12/11/2016 02:20:Crystal LYLE Pennington) COMMUNICATION Primary Language: Albanian (12/11/2016 02:20:Tami Pennington RN) Medical Tx Preferred Language: Albanian (12/11/2016 02:20:Tami Pennington RN) Communication Barrier(s): None (12/11/2016 02:20:Tami Pennington RN) DEMOGRAPHICS Address: [address] [place] [id number] (12/11/2016 02:05:QS system process) Zipcode: [address] (12/11/2016 02:05:QS system process) Home (12/11/2016 02:05:QS system process) SSN: [id number] (12/11/2016 02:05:QS system process) Next of Kin Name: LIAN CARREON (12/11/2016 02:05:QS system process) Next of Kin (12/11/2016 02:05:QS system process) Next of Kin Relationship: OR (12/11/2016 02:05:QS system process) Date of : 1990 (12/11/2016 02:05:QS system process) Marital Status: Single (12/11/2016 02:05:QS system process) Sex: Female (12/11/2016 02:05:QS system process) Race: (12/11/2016 02:05:QS system process) Ethnicity: Non- or (12/11/2016 02:05:QS system process) Sabianism: Gnosticism (12/11/2016 02:05:QS system process) DRUG AND ALCOHOL USE Alcohol: No (12/11/2016 02:20:Crystal Bronx, RN) Cigarettes: Current Everyday Smoker. [id number] (12/11/2016 02:20:Crystal Aditi, RN) Marijuana: No (12/11/2016 02:20:Crystal Aditi, RN) Cocaine: No (12/11/2016 02:20:Crystal Aditi, RN) Other Illicit Drugs: No (12/11/2016 02:20:Crystal Aditi, RN) VACCINE HISTORY Influenza Vaccine: No (12/11/2016 02:20:Tami Pennington RN) Pneumococcal Vaccine: No (12/11/2016 02:20:Tami Pennington RN) Tetanus Vaccine: No (12/11/2016 02:20:Tami Pennington RN) Tdap Vaccine: Yes (12/11/2016 02:20:Tami Pennington RN) Tdap Date: 2015 (12/11/2016 02:20:Tami Pennington RN) Hepatitis B Vaccine: No (12/11/2016 02:20:Tami Pennington RN) Agricultural Agent: [facility] (12/11/2016 02:20:Tami Pennington RN) Feeding Preference: Both (12/11/2016 02:20:Tami Pennington RN) Benefit of Breast Feed Discussed: Yes (12/11/2016 02:20:Tami Pennington RN) Circumcision: N/A (12/11/2016 02:20:Tami Pennington RN) Classes Attended: No (12/11/2016 02:20:Tami Pennington RN) Tubal Ligation: No (12/11/2016 02:20:Tami Pennington RN) Tubal Authorization Signed: N/A (12/11/2016 02:20:Tami Pennington RN) Consent: N/A (12/11/2016 02:20:Tami Pennington RN) Consent Signed: N/A (12/11/2016 02:20:Tami Pennington RN) Pain Management Plans: Epidural (12/11/2016 02:20:Tami Pennington RN) Plans for Labor and Delivery: None (12/11/2016 02:20:Tami Pennington RN) Support Person: Lian Richter (12/11/2016 02:20:Tami Pennington RN) Support Person Relationship: Other (12/11/2016 02:20:Tami Pennington RN) Other Relationship: FOB (12/11/2016 02:20:Tami Pennington RN) Cultural/Spritual Practice: No (12/11/2016 02:20:Tami Pennington RN) Spir/Cult Dietary Needs: No (12/11/2016 02:20:Tami Pennington RN) LIVING SITUATION/DISCHARGE PLAN Living Arrangements: House (12/11/2016 02:20:Tami Pennington RN) Adequate Access to:: Electric; Heat; Refrigeration; Plumbing/Running water; Phone; Transportation (12/11/2016 02:20:Tami Pennington RN) WIC Program: Yes (12/11/2016 02:20:Tami Pennington RN) Discharge Cashier Parking Lot Person: Lian Richter (12/11/2016 02:20:Tami Pennington RN) Person to Help after Discharge: Lian Richter (12/11/2016 02:20:Tami Pennington RN) Currently Using Commun Resources: Yes (12/11/2016 02:20:Tami Pennington RN) Outside Agency/Concrete Inspector: Yes (12/11/2016 02:20:Tami Pennington RN) Car Seat for Discharge: No (12/11/2016 02:20:Tami Pennington RN) Adoption Requested: No (12/11/2016 02:20:Tami Pennington RN) Pt Contact w/infant Post : N/A (12/11/2016 02:20:Tami Pennington RN) LABS Blood Type: B Positive (12/11/2016 02:20:Magda Cooper RN) Antibody Screen: negative (12/11/2016 02:20:Magda Cooper RN) Hemoglobin: 9.2 L (12/12/2016 06:39:QS system process) Hematocrit: 28.9 L (12/12/2016 06:39:QS system process) MCV: 83 (12/12/2016 06:39:QS system process) Group Beta Strep: Negative (12/11/2016 02:20:Magda Cooper RN) Gonorrhea: Negative (12/11/2016 02:20:Magda Cooper RN) Chlamydia: Negative (12/11/2016 02:20:Magda Cooper RN) RPR/VDRL: Nonreactive (12/11/2016 02:20:Magda Cooper RN) HIV Results: non-reactive (12/11/2016 02:20:Magda Cooper RN) Hepatitis B: Negative (12/11/2016 02:20:Magda Cooper RN) Rubella: Non-Immune (12/11/2016 02:20:Magda Cooper RN) Rubella Titer: 0.93 (12/11/2016 02:20:Magda Cooper RN) OB/PREVIOUS HISTORY Previous Procedures: Ultrasound; NST (12/11/2016 02:20:Tami Pennington RN) Current Procedures: Ultrasound (12/11/2016 02:20:Tami Pennington RN) History of Previous : No (12/11/2016 02:20:Tami Pennington RN) History of Gestational Diabetes: No (12/11/2016 02:20:Tami Pennington RN) History of PIH: No (12/11/2016 02:20:Tami Pennington RN) History of Incompetent Cervix: No (12/11/2016 02:20:Tami Pennington RN) History of Placenta Previa/Abrup: No (12/11/2016 02:20:Tami Pennington RN) History of Macrosomia: No (12/11/2016 02:20:Tami Pennington RN) History of IUGR: No (12/11/2016 02:20:Tami Pennington RN) History of Hemorrhage: Yes (12/11/2016 02:20:Tami Pennington RN) History of Loss/Stillborn: No (12/11/2016 02:20:Tami Pennington RN) History of : No (12/11/2016 02:20:Tami Pennington RN) History of D (Rh) Sensitization: No (12/11/2016 02:20:Tami Pennington RN) History Recurrent Loss/Stillborn: No (12/11/2016 02:20:Tami Pennington RN) History Depression/PP Depression: No (12/11/2016 02:20:Tami Pennington RN) History of Uterine Anomaly/DAYAMI: No (12/11/2016 02:20:Tami Pennington RN) History of Infertility: No (12/11/2016 02:20:Tami Pennington RN) History of ART Treatment: No (12/11/2016 02:20:Tami Pennington RN) History of DAYAMI: No (12/11/2016 02:20:Tami Pennington RN) Comments Obstetrical History: G1: 11/2015, hemorrhage? gestational thrombocytopenia, G2: current, late care, persistent elevated WBC (12/11/2016 02:20:Celsa Downing RN) MEDICAL HISTORY Med Hx Diabetes: No (12/11/2016 02:20:Tami Pennington RN) Med Hx Hypertension: No (12/11/2016 02:20:Tami Pennington RN) Med Hx Heart Disease: No (12/11/2016 02:20:Tami Pennington RN) Med Hx Autoimmune Disorder: No (12/11/2016 02:20:Tami Pennington RN) Med Hx Kidney Disease/UTI: No (12/11/2016 02:20:Tami Pennington RN) Med Hx Neurologic/Epilepsy: No (12/11/2016 02:20:Tami Pennington RN) Med Hx Psychiatric Disorders: No (12/11/2016 02:20:Tami Pennington RN) Med Hx Hepatitis/Liver Disease: No (12/11/2016 02:20:Tami Pennington RN) Med Hx Varicosities/Phlebitis: No (12/11/2016 02:20:Tami Pennington RN) Med Hx Thyroid Dysfunction: No (12/11/2016 02:20:Tami Pennington RN) Med Hx Trauma/Violence: No (12/11/2016 02:20:Tami Pennington RN) Med Hx Blood Transfusion: No (12/11/2016 02:20:Tami Pennington RN) Med Hx Pulmonary (Asthma,TB): No (12/11/2016 02:20:Tami Pennington RN) Med Hx Breast: No (12/11/2016 02:20:Tami Pennington RN) Med Hx BARKER PEELER Surgery: No (12/11/2016 02:20:Tami Pennington RN) Med Hx Hospitalization/Surgery: No (12/11/2016 02:20:Tami Pennington RN) Med Hx Anesthetic Complications: No (12/11/2016 02:20:Tami Pennington RN) Med Hx Abnormal Pap Smear: No (12/11/2016 02:20:Tami Pennington RN) Other Medical Diseases: No (12/11/2016 02:20:Tami Pennington RN) Med Hx Significant Family Hx: No (12/11/2016 02:20:Tami Pennington RN) INFECTIOUS HISTORY Inf Hx Gonorrhea: No (12/11/2016 02:20:Tami Pennington RN) Inf Hx Chlamydia: Yes (12/11/2016 02:20:Tami Pennington RN) Inf Hx Syphilis: No (12/11/2016 02:20:Tami Pennington RN) Inf Hx HIV/AIDS: No (12/11/2016 02:20:Tami Pennington RN) Inf Hx Human Papilloma Virus: No (12/11/2016 02:20:Tami Pennington RN) Inf Hx Pt/Partner Genital Herpes: No (12/11/2016 02:20:Tami Pennington RN) Inf Hx Tuberculosis/Exposure: No (12/11/2016 02:20:Tami Pennington RN) Inf Hx Hepatitis B,C: No (12/11/2016 02:20:Tami Pennington RN) Inf Hx Rash or Viral Illness: No (12/11/2016 02:20:Tami Pennington RN) Details of Infectious Hx: 2015 (12/11/2016 02:20:Tami Pennington RN) GENETIC HISTORY Gen Hx Age >=35 at NANCY: No (12/11/2016 02:20:Tami Pennington RN) Gen Hx Thalassemia: No (12/11/2016 02:20:Tami Pennington RN) Gen Hx Congenital Heart Defect: No (12/11/2016 02:20:Tami Pennington RN) Gen Hx Neural Tube Defect: No (12/11/2016 02:20:Tami Pennington RN) Gen Hx Down's Syndrome: No (12/11/2016 02:20:Tami Pennington RN) Gen Hx Shravan-Sachs: No (12/11/2016 02:20:aTmi Pennington RN) Gen Hx Santy: No (12/11/2016 02:20:Tami Pennington RN) Gen Hx Familial Dysautonomia: No (12/11/2016 02:20:Tami Pennington RN) Gen Hx Sickle Cell Disease/Trait: No (12/11/2016 02:20:Tami Pennington RN) Gen Hx Hemophilia/Blood Disorder: No (12/11/2016 02:20:Tami Pennington RN) Gen Hx Muscular Dystrophy: No (12/11/2016 02:20:Tami Pennington RN) Gen Hx Cystic Fibrosis: No (12/11/2016 02:20:Tami Pennington RN) Gen Hx Huntingtons Chorea: No (12/11/2016 02:20:Tami Pennington RN) Gen Hx Mental Retardation/Autism: No (12/11/2016 02:20:Tami Pennington RN) Gen Hx Tested for Fragile X: No (12/11/2016 02:20:Tami Pennington RN) Gen Hx Other Inher/Chromosomal: No (12/11/2016 02:20:Tami Pennington RN) Gen Hx Maternal Metabolic DO: No (12/11/2016 02:20:Tami Pennington RN) Gen Hx Pt Father or FOB Defect: No (12/11/2016 02:20:Tami Pennington RN) Gen Hx Other Genetic History: No (12/11/2016 02:20:Tami Pennington RN) Gen Hx Drugs/Meds since LMP: No (12/11/2016 02:20:Tami Pennington RN)
--- NOTE | 2016-12-12 18:01 | L&D Current Admission ---
Current Admit Datetime Report Generated by CPN: 12/12/2016 18:00 ADMISSION INFORMATION Current Admit Date/Time: 12/11/2016 03:10 (12/11/2016 02:18:Tami Pennington RN) Reason for Admission: Rupture of Membranes (12/11/2016 02:18:Tami Pennington RN) Chief Complaint: Contractions; Suspected Rupture of Membranes (12/11/2016 02:18:Tami Pennington RN) Medications During : Promethazine (Phenergan) (12/11/2016 02:18:Tami Pennington RN) EGA per Dates: 37.3 (12/11/2016 02:20:QS system process) Method of Arrival: Wheelchair (12/11/2016 02:18:Tami Pennington RN) Reason for Induction: Not Applicable (12/11/2016 02:18:Tami Pennington RN) Records Available: Yes (12/11/2016 02:18:Tami Pennington RN) General Admission Information: Reviewed (12/11/2016 02:18:Tami Pennington RN) General Admission Reviewed By: Purnima Pennington RN (12/11/2016 02:18:Tami Pennington RN) BELONGINGS/ADVANCED DIRECTIVES Disposition of Belongings: Kept with Patient (12/11/2016 02:18:Tami Pennington RN) Advance Direct for Healthcare: No, and Wants No Information (12/11/2016 02:18:Tami Pennington RN) Durable Power of Sales Floor Team Member: Yes (12/11/2016 02:18:Tami Pennington RN) Living Will: No (12/11/2016 02:18:Tami Pennington RN) Organ Donor: Yes (12/11/2016 02:18:Tami Pennington RN) Pt Rights Information Given: Yes (12/11/2016 02:18:Tami Pennington RN) Pt Understands Pt Rights: Yes (12/11/2016 02:18:Tami Pennington RN) LEARNING ASSESSMENT Knowledge Level: Understands L_D Process; Understands Care Activities; Had Pre-Hospital Education; Understands Diagnosis (12/11/2016 02:18:Tami Pennington RN) Barriers to Learning: None (12/11/2016 02:18:Tami Pennington RN) Learning Readiness: Motivated (12/11/2016 02:18:Tami Pennington RN) Learns Best By: 1 to 1 Instruction (12/11/2016 02:18:Tami Pennington RN) Learning Needs: Labor and Delivery Process (12/11/2016 02:18:Tami Pennington RN) DOMESTIC VIOLANCE SCREENING Dom Viol Threatened/Hurt: No (12/11/2016 02:18:Tami Pennington RN) Hx of Abuse/Neglect past 2yrs: No (12/11/2016 02:18:Tami Pennington RN) Feel Unsafe Going Home: No (12/11/2016 02:18:Tami Pennington RN) Addt'l Observ Indicating Abuse: No (12/11/2016 02:18:Tami Pennington RN) Reason Unable to Complete Screen: N/A, Screen Completed (12/11/2016 02:18:Tami Pennington RN) Considered Personal Harm/Suicide: No (12/11/2016 02:18:Tami Pennington RN) NUTRITIONAL/FUNCTIONAL SCREENING Problem with Appetite >5 Days: No (12/11/2016 02:18:Tami Pennington RN) Chew/Swallow Difficulties: No (12/11/2016 02:18:Tami Pennington RN) Inappropriate Wt Gain/Loss: No (12/11/2016 02:18:Tami Pennington RN) Presence Skin Breakdown/Ulcer: No (12/11/2016 02:18:Tmai Pennington RN) Special Diet: No (12/11/2016 02:18:Tami Pennington RN) Pt Requests Computer Systems Software Architect Visit: No (12/11/2016 02:18:Tami Pennington RN) Hx of Any of the Following?: N/A (12/11/2016 02:18:Tami Pennington RN) New Diagnosis of: N/A (12/11/2016 02:18:Tami Pennington RN) Requires Assist w/Ambulation: No (12/11/2016 02:18:Tami Pennington RN) Uses Assist Device to Ambulate: No (12/11/2016 02:18:Tami Pennington RN) Pt Requires Help w/ADL's: No (12/11/2016 02:18:Tami Pennington RN)
--- NOTE | 2016-12-12 18:16 | L&D Care Plan ---
LD CARE PLANS Datetime Report Generated by CPN: 12/12/2016 18:15 Datetime: 12/11/2016 03:11 Pain State: Risk For (Magda Cooper RN) Related To: Labor and Delivery Process; Complication(s) of ; Disease Process (Magda Cooper RN) Goal(s): Patients Pain will be Assessed and Managed; Patient will Verbalize Adequate Relief of Pain or the Ability to [place] with Current Pain (Magda Cooper RN) Interventions: Assess Pain Severity on Scale of 0 (None) to 5 (Severe); Assess Type, Location and Intensity of Pain Each Time Client Reports Discomfort and Notify Provider if Unusal Pain Develops; Encourage Proper Breathing and Relaxation Techniques; Offer Alternatives Such as Repositioning, Calm Environment, Massages, Diversional Activities, Ice Pack, Splinting, and Ambulation; Administer Analgesics as Ordered; Assist with Epidural Placement as Appropriate; Evaluate Therapeutic Effectiveness of Medication and Treatments (Magda Cooper RN) Outcome: Patient will Report Absence or Relief of Pain Consistent with Established Pain Goal (Magda Cooper RN) Outcome: Patient will have a Decrease in Signs and Symptoms of Discomfort (Magda Cooper RN) Outcome: Pain will be Controlled During Procedures (Magda Cooper RN) Anxiety State: Risk For (Magda Cooper RN) Related To: Labor and Delivery Process; Perceived or Actual Threat to ; Fear of Unknown; Situational Crisis (Magda Cooper RN) Goal(s): Patient will have Decreased Anxiety and be able to Function at Acceptable Levels (Magda Cooper RN) Interventions: Assess Verbal and Nonverbal Behavioral Indicators of Anxiety; Assist Patient to Identify and Verbalize Symptoms of Anxiety; Identify and Demonstrate Techniques to Control Anxiety; Assist Patient with Coping Mechanisms to Manage Anxiety; Provide Theraputic Touch for the Patient; Explain to Patient, Using a Calm Reassuring Approach and Nonmedical Terms, All Activities, Procedures, and Concerns; Instruct Patient and Family about Post Discharge Care, Limitations, Symptoms to Report and Resources Available (Magda Cooper RN) Outcome: Patient will Identify, Verbalize and Demonstrate Techniques to Control Anxiety (Magda Cooper RN) Outcome: Patient's Posture, Facial Expressions, Gestures and Activity Level will Reflect Decreased Anxiety (Magda Cooper RN) Outcome: Patient will Verbalize a Sense of Control and/or Acceptance of the Situation (Magda Cooper RN) Outcome: Patient will Identify and Utilize Support Person (Magda Cooper RN) Knowledge Deficit State: Risk For (Magda Cooper RN) Related To: Impending Alterations in Family Dynamics (Magda Cooper RN) Goal(s): Patient will Accurately Verbalize Understanding of Plan of Care and Treatment; Patient and Family will Accurately Verbalize Understanding of the Disease Process (Magda Cooper RN) Interventions: Assess Motivation and Willingness of Patient/Family to Learn; Assess Preferred Learning Mode: One to One Instruction, Reading, Videos, Group Discussion or Demonstration; Assess Barriers to Learning: Pain, Emotional State, Language Barrier, Cognitive Impairment, Visual or Hearing Deficits; Assess Patient and Family Knowledge of Disease Process, Medications and Treatment; Discuss Therapy and/or Treatment Options, Describe Rationale Behind Management, Therapy and Treatment Recommendations; Instruct Patient and Family on Signs and Symptoms to Report; Instruct Patient and Family on Medication Effects and Side Effects; Provide Appropriate and Timely Education Using Multiple Techniques; Provide Patient and Family with Support Group Information and Resources; Give Clear and Thorough Explanations and Demonstrations (Magda Cooper RN) Outcome: Patient and Family will Verbalize Understanding of Condition, Treatment and Signs and Symptoms to Report (Magda Cooper RN) Outcome: Patient will Identify Perceived Learning Needs and Express Motivation to Learn (Magda Cooper RN) Outcome: Patient will Verbalize Understanding of Desired Content, and/or Performs Desired Skill Prior to Discharge (Magda Cooper RN) Fluid Volume State: Risk For (Magda Cooper RN) Related To: Prolonged Labor or Induction; Hemorrhage (Magda Cooper RN) Goal(s): Patient will Achieve and Maintain a Balanced Fluid Volume Status; Hemodynamically Stable (Magda Cooper RN) Interventions: Monitor Vital Signs; Auscultate Breath Sounds; Monitor Patient for Skin Turgor, Mucous Membranes, Dry Skin, Weakness, Headaches and Confusion; Provide Oral Fluids as Ordered; Initiate and Maintain Intravenous Fluids as Ordered; Monitor Intake and Output as Indicated Per Patient Status; Accurately Measure Blood Loss; Monitor Lab and Test Results as Obtained and Notify Provider of Abnormal Findings; Monitor Patient's Weight (Magda Cooper RN) Outcome: Patient will have Clear Lung Sounds (Magda Cooper RN) Outcome: Patient will have Vital Signs within Expected Range (Magda Cooper RN) Outcome: Urine Output will be within Expected Range (Magda Cooper RN) Outcome: Patient will have Minimal Generalized or Upper Extremity Edema (Magda Cooper RN) Injury State: Risk For (Magda Cooper RN) Related To: Labor and Delivery Process; Anesthesia; Hemorrhage, Placenta Previa and or Placental Abruption (Magda Cooper RN) Goal(s): Patient will Remain Free from Injury (Magda Cooper RN) Interventions: Monitoring as per Hospital Protocol; Assess Neurological Status; Perform Risk Assessment of Patients with Induction and ; Perform Fall Risk Assessment and Prevention per Hospital Protocol; Perform DVT Risk Assessment and Prophylaxis per Hospital Protocol; Ensure that Oxygen, Suction, and Resuscitation Medications and Equipment are Readily Available; Confirm Patient ID Prior to Procedure(s) and Medication Administration per Hospital Policy (Magda Cooper RN) Outcome: Successful Fall Risk Prevention (Magda Cooper RN) Outcome: Patient will Deliver Infant without Adverse Sequela (Magda Cooper RN) Outcome: Patient's Neurological Status will Remain Stable (Magda Cooper RN)
[2016-12-13] MEDS: ACETAMINOPHEN WITH CODEINE #3 TABLET PO PRN ×2 (00:19→07:27)
[2016-12-13] MEDS: IBUPROFEN 800 MG TABLET PO SCH ×2 (05:32→13:04)
--- NOTE | 2016-12-13 06:01 | L&D General Admission ---
General Admit Datetime Report Generated by CPN: 12/13/2016 06:00 INFORMATION Patient Age: 26 (12/11/2016 02:05:QS system process) EDC: 12/29/2016 00:00 (12/11/2016 02:20:Tami Pennington RN) : 2 (12/11/2016 02:20:Tami Pennington RN) Para: 1 (12/11/2016 02:20:Tami Pennington RN) Term: 1 (12/11/2016 02:20:Celsa Downing RN) : 0 (12/11/2016 02:20:Celsa Downing RN) Spontaneous Abortions: 0 (12/11/2016 02:20:Celsa Downing RN) Induced Abortions: 0 (12/11/2016 02:20:Celsa Downing RN) Livin (12/11/2016 02:20:Celsa Downing RN) Cesareans: 0 (12/11/2016 02:20:Celsa Downing RN) VBACs: 0 (12/11/2016 02:20:Celsa Downing RN) Ectopic: 0 (12/11/2016 02:20:Celsa Downing RN) Multiple Births: 0 (12/11/2016 02:20:Celsa Downing RN) Baby, Number in Womb: 1 (12/11/2016 02:20:Celsa Downing RN) CARE Primary Heater Helper: [facility] (12/11/2016 02:20:Tami Pennington RN) Adequate Care: Yes (12/11/2016 02:20:Tami Pennington RN) Height (in): 60 (12/11/2016 03:09:QS system process) ALLERGIES Medication Allergy: No (12/11/2016 02:20:Tami Pennington RN) Medication Allergies: No Known Drug Allergies (12/11/2016) (12/11/2016 03:07:QS system process) Latex Allergy: No Latex Allergies (12/11/2016 02:20:Tami Pennington RN) Food Allergies: NA (12/11/2016 02:20:Tami Pennington RN) Environmental Allergies: NA (12/11/2016 02:20:Crystal LYLE Pennington) COMMUNICATION Primary Language: Macedonian (12/11/2016 02:20:Tami Pennington RN) Medical Tx Preferred Language: Macedonian (12/11/2016 02:20:Tami Pennington RN) Communication Barrier(s): None (12/11/2016 02:20:Tami Pennington RN) DEMOGRAPHICS Address: [address] [place] [id number] (12/11/2016 02:05:QS system process) Zipcode: [id number] (12/11/2016 02:05:QS system process) Home (12/11/2016 02:05:QS system process) SSN: [id number] (12/11/2016 02:05:QS system process) Next of Kin Name: LIAN CARREON (12/11/2016 02:05:QS system process) Next of Kin (12/11/2016 02:05:QS system process) Next of Kin Relationship: OR (12/11/2016 02:05:QS system process) Date of : 1990 (12/11/2016 02:05:QS system process) Marital Status: Single (12/11/2016 02:05:QS system process) Sex: Female (12/11/2016 02:05:QS system process) Race: (12/11/2016 02:05:QS system process) Ethnicity: Non- or (12/11/2016 02:05:QS system process) Voodoo: Moravian (12/11/2016 02:05:QS system process) DRUG AND ALCOHOL USE Alcohol: No (12/11/2016 02:20:Crystal [place], RN) Cigarettes: Current Everyday Smoker. 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: [employer] (12/11/2016 02:20:Tami Pennington RN) Feeding Preference: Both (12/11/2016 02:20:Tami Pennington RN) Benefit of Breast Feed Discussed: Yes (12/11/2016 02:20:Tami Pennington RN) Circumcision: N/A (12/11/2016 02:20:Tami Pennington RN) Classes Attended: No (12/11/2016 02:20:aTmi Pennington RN) Tubal Ligation: No (12/11/2016 02:20:Tami Pennington RN) Tubal Authorization Signed: N/A (12/11/2016 02:20:Tami Pennington RN) Consent: N/A (12/11/2016 02:20:Tami Pennington RN) Consent Signed: N/A (12/11/2016 02:20:Tami Pennington RN) Pain Management Plans: Epidural (12/11/2016 02:20:Tami Pennington RN) Plans for Labor and Delivery: None (12/11/2016 02:20:Tami Pennington RN) Support Person: Lian Richter (12/11/2016 02:20:Tami Pennington RN) Support Person Relationship: Other (12/11/2016 02:20:Tami Pennington RN) Other Relationship: FOB (12/11/2016 02:20:Tami Pennington RN) Cultural/Spritual Practice: No (12/11/2016 02:20:Tami Pennington RN) Spir/Cult Dietary Needs: No (12/11/2016 02:20:Tami Pennington RN) LIVING SITUATION/DISCHARGE PLAN Living Arrangements: House (12/11/2016 02:20:Tami Pennington RN) Adequate Access to:: Electric; Heat; Refrigeration; Plumbing/Running water; Phone; Transportation (12/11/2016 02:20:Tami Pennington RN) WIC Program: Yes (12/11/2016 02:20:Tami Pennington RN) 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 Person: Lian Richter (12/11/2016 02:20:Tami Pennington RN) Person to Help after Discharge: Lian Richter (12/11/2016 02:20:Tami Pennington RN) Currently Using Commun Resources: Yes (12/11/2016 02:20:Tami Pennington RN) Outside Agency/Assistant Professor Of Business: Yes (12/11/2016 02:20:Tami Pennington RN) Car Seat for Discharge: No (12/11/2016 02:20:Tami Pennington RN) Adoption Requested: No (12/11/2016 02:20:Tami Pennington RN) Pt Contact w/infant Post : N/A (12/11/2016 02:20:Tami Pennington RN) LABS Blood Type: B Positive (12/11/2016 02:20:Magda Cooper RN) Antibody Screen: negative (12/11/2016 02:20:Magda Cooper RN) Hemoglobin: 9.2 L (12/12/2016 06:39:QS system process) Hematocrit: 28.9 L (12/12/2016 06:39:QS system process) MCV: 83 (12/12/2016 06:39:QS system process) Group Beta Strep: Negative (12/11/2016 02:20:Magda Cooper RN) Gonorrhea: Negative (12/11/2016 02:20:Magda Cooper RN) Chlamydia: Negative (12/11/2016 02:20:Magda Cooper RN) RPR/VDRL: Nonreactive (12/11/2016 02:20:Magda Cooper RN) HIV Results: non-reactive (12/11/2016 02:20:Magda Cooper RN) Hepatitis B: Negative (12/11/2016 02:20:Magda Cooper RN) Rubella: Non-Immune (12/11/2016 02:20:Magda Cooper RN) Rubella Titer: 0.93 (12/11/2016 02:20:Magda Cooper RN) OB/PREVIOUS HISTORY Previous Procedures: Ultrasound; NST (12/11/2016 02:20:Tami Pennington RN) Current Procedures: Ultrasound (12/11/2016 02:20:Tami Pennington RN) History of Previous : No (12/11/2016 02:20:Tami Pennington RN) History of Gestational Diabetes: No (12/11/2016 02:20:Tami Pennington RN) History of PIH: No (12/11/2016 02:20:Tami Pennington RN) History of Incompetent Cervix: No (12/11/2016 02:20:Tami Pennington RN) History of Placenta Previa/Abrup: No (12/11/2016 02:20:Tami Pennington RN) History of Macrosomia: No (12/11/2016 02:20:Tami Pennington RN) History of IUGR: No (12/11/2016 02:20:Tami Pennington RN) History of Hemorrhage: Yes (12/11/2016 02:20:Tami Pennington RN) History of Loss/Stillborn: No (12/11/2016 02:20:Tami Pennington RN) History of : No (12/11/2016 02:20:Tami Pennington RN) History of D (Rh) Sensitization: No (12/11/2016 02:20:Tami Pennington RN) History Recurrent Loss/Stillborn: No (12/11/2016 02:20:Tami Pennington RN) History Depression/PP Depression: No (12/11/2016 02:20:Tami Pennington RN) History of Uterine Anomaly/DAYAMI: No (12/11/2016 02:20:Tami Pennington RN) History of Infertility: No (12/11/2016 02:20:Tami Pennington RN) History of ART Treatment: No (12/11/2016 02:20:Tami Pennington RN) History of DAYAMI: No (12/11/2016 02:20:Tami Pennington RN) Comments Obstetrical History: G1: 11/2015, hemorrhage? gestational thrombocytopenia, G2: current, late care, persistent elevated WBC (12/11/2016 02:20:Celsa Downing RN) MEDICAL HISTORY Med Hx Diabetes: No (12/11/2016 02:20:Tami Pennington RN) Med Hx Hypertension: No (12/11/2016 02:20:Tami Pennington RN) Med Hx Heart Disease: No (12/11/2016 02:20:Tami Pennington RN) Med Hx Autoimmune Disorder: No (12/11/2016 02:20:Tami Pennington RN) Med Hx Kidney Disease/UTI: No (12/11/2016 02:20:Tami Pennington RN) Med Hx Neurologic/Epilepsy: No (12/11/2016 02:20:Tami Pennington RN) Med Hx Psychiatric Disorders: No (12/11/2016 02:20:Tami Pennington RN) Med Hx Hepatitis/Liver Disease: No (12/11/2016 02:20:Tami Pennington RN) Med Hx Varicosities/Phlebitis: No (12/11/2016 02:20:Tami Pennington RN) Med Hx Thyroid Dysfunction: No (12/11/2016 02:20:Tami Pennington RN) Med Hx Trauma/Violence: No (12/11/2016 02:20:Tami Pennington RN) Med Hx Blood Transfusion: No (12/11/2016 02:20:Tami Pennington RN) Med Hx Pulmonary (Asthma,TB): No (12/11/2016 02:20:Tami Pennington RN) Med Hx Breast: No (12/11/2016 02:20:Tami Pennington RN) Med Hx PREPRESS SUPERVISOR Surgery: No (12/11/2016 02:20:Tami Pennington RN) Med Hx Hospitalization/Surgery: No (12/11/2016 02:20:Tami Pennington RN) Med Hx Anesthetic Complications: No (12/11/2016 02:20:Tami Pennington RN) Med Hx Abnormal Pap Smear: No (12/11/2016 02:20:Tami Pennington RN) Other Medical Diseases: No (12/11/2016 02:20:Tami Pennington RN) Med Hx Significant Family Hx: No (12/11/2016 02:20:Tami Pennington RN) INFECTIOUS HISTORY Inf Hx Gonorrhea: No (12/11/2016 02:20:Tami Pennington RN) Inf Hx Chlamydia: Yes (12/11/2016 02:20:Tami Pennington RN) Inf Hx Syphilis: No (12/11/2016 02:20:Tami Pennington RN) Inf Hx HIV/AIDS: No (12/11/2016 02:20:Tami Pennington RN) Inf Hx Human Papilloma Virus: No (12/11/2016 02:20:Tami Pennington RN) Inf Hx Pt/Partner Genital Herpes: No (12/11/2016 02:20:Tami Pennington RN) Inf Hx Tuberculosis/Exposure: No (12/11/2016 02:20:Tami Pennington RN) Inf Hx Hepatitis B,C: No (12/11/2016 02:20:Tami Pennington RN) Inf Hx Rash or Viral Illness: No (12/11/2016 02:20:Tami Pennington RN) Details of Infectious Hx: 2015 (12/11/2016 02:20:Tami Pennington RN) GENETIC HISTORY Gen Hx Age >=35 at NANCY: No (12/11/2016 02:20:Tami Pennington RN) Gen Hx Thalassemia: No (12/11/2016 02:20:Tami Pennington RN) Gen Hx Congenital Heart Defect: No (12/11/2016 02:20:Tami Pennington RN) Gen Hx Neural Tube Defect: No (12/11/2016 02:20:Tami Pennington RN) Gen Hx Down's Syndrome: No (12/11/2016 02:20:Tami Pennington RN) Gen Hx Shravan-Sachs: No (12/11/2016 02:20:Tami Pennington RN) Gen Hx Santy: No (12/11/2016 02:20:Tami Pennington RN) Gen Hx Familial Dysautonomia: No (12/11/2016 02:20:Tami Pennington RN) Gen Hx Sickle Cell Disease/Trait: No (12/11/2016 02:20:Tami Pennington RN) Gen Hx Hemophilia/Blood Disorder: No (12/11/2016 02:20:Tami Pennington RN) Gen Hx Muscular Dystrophy: No (12/11/2016 02:20:Tami Pennington RN) Gen Hx Cystic Fibrosis: No (12/11/2016 02:20:Tami Pennington RN) Gen Hx Huntingtons Chorea: No (12/11/2016 02:20:Tami Pennington RN) Gen Hx Mental Retardation/Autism: No (12/11/2016 02:20:Tami Pennington RN) Gen Hx Tested for Fragile X: No (12/11/2016 02:20:Tami Pennington RN) Gen Hx Other Inher/Chromosomal: No (12/11/2016 02:20:Tami Pennington RN) Gen Hx Maternal Metabolic DO: No (12/11/2016 02:20:Tmai Pennington RN) Gen Hx Pt Father or FOB Defect: No (12/11/2016 02:20:Tami Pennington RN) Gen Hx Other Genetic History: No (12/11/2016 02:20:Tami Pennington RN) Gen Hx Drugs/Meds since LMP: No (12/11/2016 02:20:Tami Pennington RN)
--- NOTE | 2016-12-13 06:01 | L&D Current Admission ---
Current Admit Datetime Report Generated by CPN: 12/13/2016 06:00 ADMISSION INFORMATION Current Admit Date/Time: 12/11/2016 03:10 (12/11/2016 02:18:Tami Pennington RN) Reason for Admission: Rupture of Membranes (12/11/2016 02:18:Tami Pennington RN) Chief Complaint: Contractions; Suspected Rupture of Membranes (12/11/2016 02:18:Tami Pennington RN) Medications During : Promethazine (Phenergan) (12/11/2016 02:18:Tami Pennington RN) EGA per Dates: 37.3 (12/11/2016 02:20:QS system process) Method of Arrival: Wheelchair (12/11/2016 02:18:Tami Pennington RN) Reason for Induction: Not Applicable (12/11/2016 02:18:Tami Pennington RN) Records Available: Yes (12/11/2016 02:18:Tami Pennington RN) General Admission Information: Reviewed (12/11/2016 02:18:Tami Pennington RN) General Admission Reviewed By: Purnima Pennington RN (12/11/2016 02:18:Tami Pennington RN) BELONGINGS/ADVANCED DIRECTIVES Disposition of Belongings: Kept with Patient (12/11/2016 02:18:Tami Pennington RN) Advance Direct for Healthcare: No, and Wants No Information (12/11/2016 02:18:Tami Pennington RN) Durable Power of Production Shift Supervisor: Yes (12/11/2016 02:18:Tami Pennington RN) Living Will: No (12/11/2016 02:18:Tami Pennington RN) Organ Donor: Yes (12/11/2016 02:18:Tami Pennington RN) Pt Rights Information Given: Yes (12/11/2016 02:18:Tami Pennington RN) Pt Understands Pt Rights: Yes (12/11/2016 02:18:Tami Pennington RN) LEARNING ASSESSMENT Knowledge Level: Understands L_D Process; Understands Care Activities; Had Pre-Hospital Education; Understands Diagnosis (12/11/2016 02:18:Tami Pennington RN) Barriers to Learning: None (12/11/2016 02:18:Tami Pennington RN) Learning Readiness: Motivated (12/11/2016 02:18:Tami Pennington RN) Learns Best By: 1 to 1 Instruction (12/11/2016 02:18:Tami Pennington RN) Learning Needs: Labor and Delivery Process (12/11/2016 02:18:Tami Pennington RN) DOMESTIC VIOLANCE SCREENING Dom Viol Threatened/Hurt: No (12/11/2016 02:18:Tami Pennington RN) Hx of Abuse/Neglect past 2yrs: No (12/11/2016 02:18:Tami Pennington RN) Feel Unsafe Going Home: No (12/11/2016 02:18:Tami Pennington RN) Addt'l Observ Indicating Abuse: No (12/11/2016 02:18:Tami Pennington RN) Reason Unable to Complete Screen: N/A, Screen Completed (12/11/2016 02:18:Tami Pennington RN) Considered Personal Harm/Suicide: No (12/11/2016 02:18:Tami Pennington RN) NUTRITIONAL/FUNCTIONAL SCREENING Problem with Appetite >5 Days: No (12/11/2016 02:18:Tami Pennington RN) Chew/Swallow Difficulties: No (12/11/2016 02:18:Tami Pennington RN) Inappropriate Wt Gain/Loss: No (12/11/2016 02:18:Tmai Pennington RN) Presence Skin Breakdown/Ulcer: No (12/11/2016 02:18:Tami Pennington RN) Special Diet: No (12/11/2016 02:18:Tami Pennington RN) Pt Requests Regulatory Affairs Director Visit: No (12/11/2016 02:18:Tami Pennington RN) Hx of Any of the Following?: N/A (12/11/2016 02:18:Tami Pennington RN) New Diagnosis of: N/A (12/11/2016 02:18:Tami Pennington RN) Requires Assist w/Ambulation: No (12/11/2016 02:18:Tami Pennington RN) Uses Assist Device to Ambulate: No (12/11/2016 02:18:Tami Pennington RN) Pt Requires Help w/ADL's: No (12/11/2016 02:18:Tami Pennington RN)
[2016-12-13 07:48] VITALS: BP 113/70
[2016-12-13] MEDS: DOCUSATE SODIUM 100 MG CAPSULE PO SCH (09:06)
[2016-12-13] MEDS: PRENATAL VITAMIN W-O CA NO5/FE FUMARATE/FA CAPSULE PO SCH (09:06)
[2016-12-13] MEDS: FERROUS SULFATE 325 MG TABLET PO SCH (09:06)
[2016-12-13] MEDS: SENNOSIDES/DOCUSATE 8.6-50 MG 1 EACH TABLET PO SCH (09:06)
--- NOTE | 2016-12-13 09:31 | PDOC PROGRESS REPORT ---
Subjective-OB Subjective: Post Delivery Day: 26 year old. Denies any needs at this time.Ready to go home. Requesting something stronger than Motrin for uterine cramping. Physical Exam (OB) Vital Signs: Temp Pulse Resp BP Pulse Ox 97.8 F 68 18 113/70 100 12/13/16 08:18 12/13/16 08:18 12/13/16 08:18 12/13/16 07:26 12/13/16 08:18 Intake & Output 12/12/16 12/13/16 12/14/16 06:59 06:59 06:59 Intake Total 640 240 Balance 640 240 Baby 1 Female 2.75 kg - Lochia Lochia Amount: Scant < 10 ml Lochia Color: Rubra/Red - Abdomen Description: Tender, Soft, Round Hernia Present: No Bowel Sounds: Normoactive Flatus Presence: Present Stool: No Fundal Description: Firm, Midline Fundal Height: u/u - u/2 Objective-Diagnostic Laboratory: 12/12/16 06:39 12/12/16 12/12/16 06:39 06:39 WBC 24.0 H RBC 3.50 L Hgb 9.2 L Hct 28.9 L MCV 83 MCH 26.2 L MCHC 31.7 L RDW 15.1 H Plt Count 269 Seg Neutrophils % Not Reportable Lymphocytes % Not Reportable Monocytes % Not Reportable Eosinophils % Not Reportable Basophils % Not Reportable Absolute Neutrophils Not Reportable Absolute Lymphocytes Not Reportable Absolute Monocytes Not Reportable Absolute Eosinophils Not Reportable Absolute Basophils Not Reportable Iron 24 L TIBC 436 % Saturation 6 Ferritin 5.44 L Vitamin B12 215.0 L Folate 9.17 Assessment and Plan(PN) - Assessment and Plan (1) Leukocytosis, unspecified Qualifiers: Leukocytosis type: leukemoid reaction Qualified Code(s): D72.823 - Leukemoid reaction Is this a current diagnosis for this admission?: Yes (2) Is this a current diagnosis for this admission?: Yes (3) Vaginal delivery Is this a current diagnosis for this admission?: Yes - Disposition Anticipated Discharge: Home
--- NOTE | 2016-12-13 09:42 | PDOC DISCHARGE SUMMARY ---
Final Diagnosis Discharge Date: 12/13/16 - Final Diagnosis (1) Leukocytosis, unspecified Is this a current diagnosis for this admission?: Yes (2) Is this a current diagnosis for this admission?: Yes (3) Vaginal delivery Is this a current diagnosis for this admission?: Yes Discharge Data - Discharge Medication Home Medications: Docusate Sodium [Colace 100 mg Capsule] 100 mg PO BID #30 capsule 12/13/16 Ferrous Sulfate [Feosol 325 mg Tablet] 325 mg PO BID #60 tablet 12/13/16 Ibuprofen [Motrin 800 mg Tablet] 800 mg PO Q8 #20 tablet 12/13/16 Gestational Age: 37.3 wks Reason(s) for Admission: PROM Procedures: Ultrasound Intrapartum Procedure(s): Spontaneous Vaginal Delivery - Melvin Data Baby 1 Female at 1 minute: 9 at 5 minutes: 9 Weight: 2.75 kg Home with Mother: Yes Complications: No - Diagnosis Test Laboratory: Temp Pulse Resp BP Pulse Ox 97.8 F 83 15 105/75 100 12/12/16 07:34 12/12/16 07:34 12/12/16 07:34 12/12/16 07:34 12/12/16 07:34 12/11/16 12/11/16 12/12/16 02:21 03:30 06:39 RBC 3.99 3.50 L Hgb 10.5 L 9.2 L Hct 32.9 L 28.9 L Urine Opiates Screen NEGATIVE - Discharge information/Instructions Discharge Activity: Activity As Tolerated, Balance Activity w/Rest, Pelvic Rest , Slowly Increase Activity, No tub bath Discharge Diet: Regular Disposition: HOME, SELF-CARE Follow up with: [facility] in: 4, Weeks
--- NOTE | 2016-12-13 10:01 | PDOC PROGRESS REPORT ---
Subjective Progress Note for:: 12/13/16 Subjective:: No acute events overnight, no fevers, patient seems to be doing well this morning Physical Exam Vital Signs: Temp Pulse Resp BP Pulse Ox 97.8 F 68 18 113/70 100 12/13/16 08:18 12/13/16 08:18 12/13/16 08:18 12/13/16 07:26 12/13/16 08:18 Intake & Output 12/12/16 12/13/16 12/14/16 06:59 06:59 06:59 Intake Total 640 240 Balance 640 240 Baby 1 Female 2.75 kg General appearance: PRESENT: no acute distress, well-developed, well-nourished Head exam: PRESENT: atraumatic, normocephalic Eye exam: PRESENT: conjunctiva pink, EOMI, PERRLA. ABSENT: scleral icterus Ear exam: PRESENT: normal external ear exam Mouth exam: PRESENT: moist, tongue midline Neck exam: ABSENT: carotid bruit, JVD, lymphadenopathy, thyromegaly Respiratory exam: PRESENT: clear to auscultation fabio. ABSENT: rales, rhonchi, wheezes Cardiovascular exam: PRESENT: RRR. ABSENT: diastolic murmur, rubs, systolic murmur Pulses: PRESENT: normal dorsalis pedis pul Vascular exam: PRESENT: normal capillary refill GI/Abdominal exam: PRESENT: normal bowel sounds, soft. ABSENT: distended, guarding, mass, organolmegaly, rebound, tenderness Rectal exam: PRESENT: deferred Extremities exam: PRESENT: full ROM. ABSENT: calf tenderness, clubbing, pedal edema Neurological exam: PRESENT: alert, awake, oriented to person, oriented to place , oriented to time, oriented to situation, CN II-XII grossly intact. ABSENT: motor sensory deficit Psychiatric exam: PRESENT: appropriate affect, normal mood. ABSENT: homicidal ideation, suicidal ideation Skin exam: PRESENT: dry, intact, warm. ABSENT: cyanosis, rash Results Laboratory Results: 12/12/16 06:39 12/12/16 06:39 Iron 24 L TIBC 436 % Saturation 6 Ferritin 5.44 L Vitamin B12 215.0 L Folate 9.17 Assessment & Plan - Diagnosis (1) Leukocytosis, unspecified Qualifiers: Leukocytosis type: leukemoid reaction Qualified Code(s): D72.823 - Leukemoid reaction Is this a current diagnosis for this admission?: YesPlan: Has noted previously most likely a leukemoid/reactive leukocytosis, we will plan on further follow-up as an outpatient. (2) Iron deficiency anemia during Is this a current diagnosis for this admission?: YesPlan: Iron deficiency anemia associated with , we will give 1 dose of IV iron today, she also has B12 deficiency and will give her B12 thousand micrograms IM 1 today, she will require daily B12 shots for 10 days in a row. We will try and set that up through our office. - Time Time Spent with patient: 15-24 minutes Critical Time spent with patient: 15-24 minutes Anticipated discharge: Home
[2016-12-13] MEDS ORDERED: CYANOCOBALAMIN (VITAMIN B-12) INJ 1000 MCG/1 ML VIAL IM ONE (11:00)
[2016-12-13] MEDS ORDERED: FERUMOXYTOL 510 MG in NORMAL SALINE 100 ML IV ONE (12:00)
== END 2016-12-13 13:28 | disposition home or self-care (01) | DRG 775 ==
LOC: LC 02:05 → LR 03:08 → 2S 19:55
PROVIDERS: ADMIT Obstetrics & Gynecology; ATTEND Obstetrics & Gynecology
PROC: 10E0XZZ Delivery of Products of Conception, External Approach (ICD-10-PCS; principal; 2016-12-11)
PROC: 4A1HXCZ Monitoring of Products of Conception, Cardiac Rate, External Approach (ICD-10-PCS; 2016-12-11)
DX: O42.02 Full-term premature rupture of membranes, onset of labor within 24 hours of rupture (principal); O99.334 Smoking (tobacco) complicating childbirth; F17.210 Nicotine dependence, cigarettes, uncomplicated; O26.893 Other specified pregnancy related conditions, third trimester; D72.823 Leukemoid reaction; O99.02 Anemia complicating childbirth; D50.9 Iron deficiency anemia, unspecified; O69.81X0 Labor and delivery complicated by cord around neck, without compression, not applicable or unspecified; Z3A.37 37 weeks gestation of pregnancy; Z37.0 Single live birth
CPT/HCPCS: 36415; 80307; 81005; 82607; 82728; 82746; 83540; 83550; 84112; 85025; 86592; 86850; 86900; 86901; 88307; 94760; J2590; J3420; J3490; Q0138

== ENCOUNTER 2019-01-25 16:27 | Emergency (ER) | payer MEDICAID ==
[2019-01-25 17:21] VITALS: BP 115/64
[2019-01-25] MEDS ORDERED: ERYTHROMYCIN 0.5% OPH OINTMENT 3.5 GM TUBE OU ONE (17:35)
--- NOTE | 2019-01-25 17:38 | ER Document Report ---
HPI - HPI Patient complains to provider of: pink eye Time Seen by Provider: 01/25/19 17:23 Onset: Other - 3 days Pain Level: 2 Context: She presents emergency department with complaints of pinkeye. Patient reports that the little boy that is being cared for by her 's parents had pinkeye. She reports they have been washing her hands and doing the best they could but 3 days ago she discovered her right eye with discharge crusty when she woke up and now it is in the left eye. She reports crusting to both eyes upon waking. She denies vision problems she denies other symptoms such as fever vomiting diarrhea. She reports her nanny used some topical antibiotic ointment in her right eye and it seems to get better. She reports her now has the pinkeye and she is asking medication for him also. Associated Symptoms: None Exacerbated by: Denies Relieved by: Denies Similar symptoms previously: No Recently seen / treated by doctor: No - REPRODUCTIVE Reproductive: DENIES: : Past Medical History - General Information source: Patient - Social History Smoking Status: Unknown if Ever Smoked Cigarette use (# per day): No Frequency of alcohol use: None Drug Abuse: None Lives with: Family Family History: None Patient has suicidal ideation: No Patient has homicidal ideation: No Pulmonary Medical History: Reports: Hx Asthma - As a child, no medications needed in several years Neurological Medical History: Reports: Hx Seizures - As a child, no medications needed in several years. - Immunizations Hx Diphtheria, Pertussis, Tetanus Vaccination: No Vertical Provider Document - CONSTITUTIONAL Agree With Documented VS: Yes Exam Limitations: No Limitations General Appearance: WD/WN, No Apparent Distress - INFECTION CONTROL TRAVEL OUTSIDE OF THE [place] IN LAST 30 DAYS: No - HEENT HEENT: Atraumatic, Conjuctival Injection, Normocephalic, PERRLA. negative: Pharyngeal Erythema, Tympanic Membrane Red, Tympanic Membrane Bulging - NECK Neck: Normal Inspection, Supple. negative: Lymphadenopathy-Left, Lymphadenopathy-Right - RESPIRATORY Respiratory: No Respiratory Distress - CARDIOVASCULAR Cardiovascular: Regular Rate - MUSCULOSKELETAL/EXTREMETIES Musculoskeletal/Extremeties: FROILAN ROMERO - NEURO Level of Consciousness: Awake, Alert, Appropriate Motor/Sensory: No Motor Deficit - DERM Integumentary: Warm, Dry Course - Re-evaluation Re-evalutation: 01/25/19 Patient was prescribed erythromycin ointment. She was instructed on care. She was instructed on the importance of good handwashing. No vision difficulties. Patient was also instructed to return the emergency department for worsening symptoms. She verbalized understanding to all instructions. Dictation of this chart was performed using voice recognition software; therefor e, there may be some unintended grammatical errors. - Vital Signs Vital signs: Temp Pulse Resp BP Pulse Ox 98.1 F 75 14 115/64 100 01/25/19 17:19 01/25/19 17:19 01/25/19 17:19 01/25/19 17:19 01/25/19 17:19 Discharge - Discharge Clinical Impression: Bacterial conjunctivitis of both eyes Condition: Stable Disposition: HOME, SELF-CARE Instructions: Antibiotic Therapy ([facility]), Conjunctivitis ([facility]) Additional Instructions: *You have been evaluated for eye irritation, bacterial conjunctivitis *By half-inch ribbon to both eyes bottom lids 4 times a day for the next 5 days *Good hand washing- Do not reuse wash clothes or towels after wiping eyes *Follow up with an proposal editor for recheck within one week *Return to ED for worsening condition, changes, needs, concerns
== END 2019-01-25 18:04 | disposition home or self-care (01) ==
LOC: ER 16:27
DX: H10.9 Unspecified conjunctivitis (principal); B96.89 Other specified bacterial agents as the cause of diseases classified elsewhere
CPT/HCPCS: 99283; J3490

== ENCOUNTER 2020-08-02 18:49 | Emergency (ER) | payer MEDICAID ==
--- NOTE | 2020-08-02 19:37 | ER Document Report ---
ED Medical Screen (RME) - General Chief Complaint: Vaginal Bleeding Stated Complaint: VAGINAL BLEEDING Time Seen by Provider: 08/02/20 19:32 Mode of Arrival: Wheelchair Information source: Patient Notes: HPI; 29-year-old female presents to the emergency room complaining of vaginal bleeding that started today around 2 PM states by 4 PM she started bleeding heavier with some cramping and clotting. Patient unsure if she is states she had a miscarriage about 6 weeks ago. Is sexually active not using anything for control. States her cycles are regular so unsure of her last normal menstrual cycle. PE: Alert and oriented x3. Lungs: Clear to auscultation without rales, rhonchi, wheezes. Heart: Regular rate rhythm without murmurs, rubs, gallops. Unable to do full exam in triage. I have greeted and performed a rapid initial assessment of this patient. A comprehensive ED assessment and evaluation of the patient, analysis of test results and completion of the medical decision making process will be conducted by additional ED providers. I have specifically instructed the patient or family members with the patient to immediately return to any nursing staff should anything change in the patient's condition or with their chief complaint. TRAVEL OUTSIDE OF THE [place] IN LAST 30 DAYS: No - Related Data Allergies/Adverse Reactions: No Known Drug Allergies Allergy (Verified 01/25/19 16:36) Past Medical History Pulmonary Medical History: Reports: Hx Asthma - As a child, no medications needed in several years Neurological Medical History: Reports: Hx Seizures - As a child, no medications needed in several years. Renal/ Medical History: Denies: Hx Peritoneal Dialysis - Immunizations Hx Diphtheria, Pertussis, Tetanus Vaccination: No Physical Exam - Vital signs Vitals: Temp Pulse Resp BP Pulse Ox 98.7 F 81 18 109/75 100 08/02/20 19:03 08/02/20 19:03 08/02/20 19:03 08/02/20 19:03 08/02/20 19:03 Course - Vital Signs Vital signs: Temp Pulse Resp BP Pulse Ox 98.7 F 81 18 109/75 100 08/02/20 19:03 08/02/20 19:03 08/02/20 19:03 08/02/20 19:03 08/02/20 19:03
[2020-08-02 20:57] LABS: ABSOLUTE EOSINOPHILS # (AUTO) 0.1 10^3/uL (0.0-0.6); ABSOLUTE LYMPHOCYTES (AUTO) 1.3 10^3/uL (0.5-4.7); ABSOLUTE MONOCYTES (AUTO) 0.6 10^3/uL (0.1-1.4); BASOPHILS % (AUTO) 0.5 % (0-2); EOSINOPHILS % (AUTO) 0.8 % (0-6); HEMATOCRIT 38.6 % (36.0-47.0); HEMOGLOBIN 13.5 g/dL (12.0-15.5); LYMPHOCYTES % (AUTO) 14.8 % (13-45); MEAN CORPUSCULAR HEMOGLOBIN 29.6 pg (27.0-33.4); MEAN CORPUSCULAR VOLUME 85 fl (80-97); MONOCYTES % (AUTO) 6.5 % (3-13); PLATELET COUNT 172 10^3/uL (150-450); RED BLOOD COUNT 4.56 10^6/uL (3.72-5.28); RED CELL DISTRIBUTION WIDTH 13.1 % (11.5-14.0); SEGMENTED NEUTROPHILS % (AUTO) 77.4 % (42-78); TOTAL CELLS COUNTED % (AUTO) 100 %
[2020-08-02 21:14] LABS: ALBUMIN 4.5 g/dL (3.5-5.0); ALKALINE PHOSPHATASE 68 U/L (38-126); ANION GAP 9 (5-19); ASPARTATE AMINO TRANSFERASE 23 U/L (14-36); BILIRUBIN,DIRECT 0.3 mg/dL (0.0-0.4); BILIRUBIN,TOTAL 0.4 mg/dL (0.2-1.3); BLOOD UREA NITROGEN 13 mg/dL (7-20); CALCIUM 9.3 mg/dL (8.4-10.2); CARBON DIOXIDE 27 mmol/L (22-30); CHLORIDE 101 mmol/L (98-107); GLUCOSE 74 mg/dL (75-110); POTASSIUM 3.8 mmol/L (3.6-5.0); TOTAL PROTEIN 7.2 g/dL (6.3-8.2)
--- NOTE | 2020-08-02 23:29 | RADIOLOGY REPORT (SQ) ---
EXAM DESCRIPTION: US TRANSVAGINAL COMPLETED DATE/TME: 08/02/2020 21:30 CLINICAL HISTORY: 29 years Female vaginal bleeding COMPARISON: None. TECHNIQUE: Transvaginal duplex imaging performed to evaluate the pelvis. FINDINGS: Uterus measures 8.5 x 4 cm. There is an intrauterine gestational sac. The cervix is closed and measures 3 cm. pole and yolk sac are identified. No heart tones are noted. B[place]iff-rump length is 2 mm. The right ovary measures 2 x 2.1 x 3.3 cm with normal flow. The left ovary measures 4.1 x 3.1 x 3.5 cm. Simple appearing cyst measuring 2.7 x 2.9 cm. This is almost totally benign and no follow-up is recommended. The gestational sac appears elongated. IMPRESSION: Intrauterine gestational sac which appears somewhat irregular and elongated. Estimated age 5 weeks five days. No heart tones are noted. Findings are consistent with of uncertain viability. Recommend follow-up in one week
[2020-08-03] MEDS ORDERED: HYDROCODONE/ACETAMINOPHEN 5-325 MG (6 TAB/ER DISP) PO PRN (02:01)
[2020-08-03] MEDS ORDERED: ONDANSETRON ODT 4 MG TAB (6 TAB/ER DISP) PO PRN (02:01)
--- NOTE | 2020-08-03 02:08 | ER Document Report ---
ED GI/ - General Chief Complaint: Vaginal Bleeding Stated Complaint: VAGINAL BLEEDING Time Seen by Provider: 08/02/20 19:32 Primary Care Provider: [facility] [Provider Group] - 08/05/20 Mode of Arrival: Wheelchair Notes: Patient is a 29-year-old female that comes emergency department for chief complaint of vaginal bleeding that started over the past day. She states initially she was bleeding heavier and she states she has gone through a couple of tampons while at work, however bleeding is slowed down now. She denies any current symptoms including abdominal pain, flank pain, nausea, vomiting, fever, dysuria, vaginal discharge. Patient states that "about 6 weeks ago" and she was seen by her [employer] in the office, she was told that she had an intrauterine with no heartbeat and that she had miscarried. Patient states that she was offered D&C versus "medication to make me passed the fetus" versus waiting. Patient states that she declined treatment at that time and has not gone back up to this point. Patient states she became concerned when she sta rted bleeding again. Patient reports she is A2. TRAVEL OUTSIDE OF THE [place] IN LAST 30 DAYS: No - Related Data Allergies/Adverse Reactions: No Known Drug Allergies Allergy (Verified 01/25/19 16:36) Past Medical History - General Information source: Patient - Social History Smoking Status: Current Every Day Smoker Family History: None Pulmonary Medical History: Reports: Hx Asthma - As a child, no medications needed in several years Neurological Medical History: Reports: Hx Seizures - As a child, no medications needed in several years. Renal/ Medical History: Denies: Hx Peritoneal Dialysis - Immunizations Hx Diphtheria, Pertussis, Tetanus Vaccination: No Review of Systems - Review of Systems Constitutional: No symptoms reported EENT: No symptoms reported Cardiovascular: No symptoms reported Respiratory: No symptoms reported Gastrointestinal: No symptoms reported Genitourinary: No symptoms reported Female Genitourinary: See HPI Musculoskeletal: No symptoms reported Skin: No symptoms reported Hematologic/Lymphatic: No symptoms reported Neurological/Psychological: No symptoms reported Physical Exam - Vital signs Vitals: Temp Pulse Resp BP Pulse Ox 98.7 F 81 18 109/75 100 08/02/20 19:03 08/02/20 19:03 08/02/20 19:03 08/02/20 19:03 08/02/20 19:03 - Notes Notes: GENERAL: Alert, interacts well. No acute distress. HEAD: Normocephalic, atraumatic. EYES: Pupils equal, round, and reactive to light. Extraocular movements intact. ENT: Oral mucosa moist, tongue midline. Oropharynx unremarkable. Airway patent. NECK: Full range of motion. Supple. Trachea midline. No lymphadenopathy. LUNGS: Clear to auscultation bilaterally, no wheezes, rales, or rhonchi. No respiratory distress. Non-tender chest wall. HEART: Regular rate and rhythm. No murmur ABDOMEN: Soft, non-tender. Non-distended. Bowel sounds present in all 4 quadrants. GENITOURINARY: Deferred EXTREMITIES: Moves all 4 extremities spontaneously. No edema, normal radial and dorsalis pedis pulses bilaterally. No cyanosis. BACK: no cervical, thoracic, lumbar midline tenderness. No saddle anesthesia, normal distal neurovascular exam. Moves all extremities in full range of motion. NEUROLOGICAL: Alert and oriented x3. Normal speech. Cranial nerves II through XII grossly intact. Strength 5/5 in all extremities. PSYCH: Normal affect, normal mood. SKIN: Warm, dry, normal turgor. No rashes or lesions noted. Course - Re-evaluation Re-evalutation: RhoGam not performed tonight but patient has multiple records of her blood type (B+). CBC unremarkable, chemistry nonspecific, hCG is very low in the 300s. There is an intrauterine that is measuring at 5 weeks but no heartbeat. Based on patient's reported history of previously noted intrauterine with suspected demise I suspect patient has simply not passed the fetus yet. Patient states that she had some bleeding and thought she might of passed tissue and thought she miscarried previously, however based on her very low hCG and the visualized in the uterus I do not suspect this at this time. I did discuss with patient discussing with [employer] again for potential D&C versus medication, however after discussion because patient is now developing cramping and bleeding decision was made for patient to attempt to pass this at home. Patient has had miscarriages in the past and is familiar with this. Patient does state that she will call on Wednesday to follow-up with [employer] for additional options and management, I discussed return precautions at length, patient states appreciation and agreement. Stable and well-appearing at time of discharge. - Vital Signs Vital signs: Temp Pulse Resp BP Pulse Ox 97.8 F 59 L 14 111/73 100 08/03/20 02:26 08/03/20 02:26 08/03/20 02:26 08/03/20 02:26 08/03/20 02:26 - Laboratory Result Diagrams: 08/02/20 20:41 08/02/20 20:41 Laboratory results interpreted by me: 08/02/20 08/02/20 08/02/20 20:41 20:41 20:41 Sodium 136.9 L Glucose 74 L Serum HCG, Qual POSITIVE H Beta HCG, Quant 388.35 H Discharge - Discharge Clinical Impression: Vaginal bleeding affecting early , Pelvic cramping Condition: Stable Disposition: HOME, SELF-CARE Instructions: Oral Narcotic Medication ([facility]) Additional Instructions: Your ultrasound does show a in the uterus, however because of of your very low hormone and your bleeding/cramping I suspect you are going to proceed to miscarry this . You have been provided with pain medication to take if needed, please call [employer] and follow-up with them on Wednesday for additional management. Return for any concerning symptoms including severe pain, vomiting, passing out, or any other concerning symptoms. See additional instructions below. Miscarriage Impending You have been evaluated for a possible miscarriage. At this time, it appears that the fetus has stopped growing. A miscarriage occurs when the fetus is abnormal. There is no medicine or treatment to prevent it. If bleeding is not severe, and if your pain can be controlled with medicine, you could complete the miscarriage at home. If that's not practical, or if the miscarriage doesn't progress spontaneously, you may need a D&C procedure. You should rest in bed. Do not douche or have sex for at least a week, or until OK'd by the doctor. If you believe you've passed the fetus, collect it in a zip-lock plastic bag. Be sure to follow up with your doctor. Call the doctor or return for re- examination if there is an increase in bleeding or cramping, extreme weakness, fainting, fever, or passage of tissue. Prescriptions: Oxycodone HCl/Acetaminophen [Percocet 5-325 mg Tablet] 1 - 2 tab PO TID PRN #10 tab PRN Reason: Forms: Return to Work Referrals: [facility] [Provider Group] - 08/05/20
[2020-08-03 02:27] VITALS: BP 111/73
== END 2020-08-03 02:27 | disposition home or self-care (01) ==
LOC: ER 18:49
DX: O20.9 Hemorrhage in early pregnancy, unspecified (principal); O26.899 Other specified pregnancy related conditions, unspecified trimester; R10.2 Pelvic and perineal pain; O99.330 Smoking (tobacco) complicating pregnancy, unspecified trimester; F17.200 Nicotine dependence, unspecified, uncomplicated; Z3A.00 Weeks of gestation of pregnancy not specified
CPT/HCPCS: 36415; 76817; 80053; 84702; 84703; 85025; 93976; 99284